=== PATIENT | female | born 1955 | race Caucasian/White ===

== ENCOUNTER → 2019-11-07 12:05 | Outpatient (CLI) | payer OTHER, SELFPAY ==
--- NOTE | ~2019-11-07 | DEXA_ITS ---
Bone Density Report Name: Reva Conroy Age: 64 Sex: Female Ethnicity: White Date of : 1955 Indication: postmenopausal; screening for osteoporosis; Referring Provider: KHOI ALEX Study: Bone densitometry was performed. Exam Date: November 07, 2019 Accession number: [id number] Bone Density: Region BMD T-score Z-score Classification AP Spine (L1, L2, L3) 0.908 -1.0 0.6 Normal Femoral Neck (Left) 0.721 -1.2 0.3 Osteopenia Total Hip (Left) 0.965 0.2 1.3 Normal Femoral Neck (Right) 0.705 -1.3 0.1 Osteopenia Total Hip (Right) 0.947 0.0 1.2 Normal Total Hip Mean 0.956 0.1 1.3 Normal World Health Organization criteria for BMD impression classify patients as: Normal (T-score at or above -1.0), Osteopenia (T-score between -1.0 and -2.5), or Osteoporosis (T-score at or below -2.5). 10-year Fracture Risk(1): Major Osteoporotic Fracture 7.9% Hip Fracture 0.6% Reported Risk Factors: [place] (), Neck BMD=0.705, BMI=30.2 (1) FRAX(R) Version 3.08. Fracture probability calculated for an untreated patient. Fracture probability may be lower if the patient has received treatment. Previous Exams: Region Exam Age BMD T-score BMD Change BMD Change Date g/cm2 vs Baseline vs Previous AP Spine(L1, L2, L3) 11/07/2019 64 0.908 -1.0 -0.054* -0.061* 06/08/2016 60 0.969 -0.4 0.007 0.007 04/05/2014 58 0.963 -0.5 Total Hip(Left) 11/07/2019 64 0.965 0.2 0.067* 0.013 06/08/2016 60 0.952 0.1 0.054* 0.054* 04/05/2014 58 0.898 -0.4 Total Hip(Right) 11/07/2019 64 0.947 0.0 0.062* -0.013 06/08/2016 60 0.960 0.1 0.075* 0.075* 04/05/2014 58 0.885 -0.5 *Denotes significance at 95% confidence level, LSC for AP Spine = 0.022 g/cm2, LSC for Total Hip = 0.027 g/cm2 Clinical Information Provided by Patient: Has used the following medications: Vitamin D Patient maximum height was 60.2 Menopause Age: 56 Drinks caffeinated beverages Onset of menses at age 14 Number of children 3 Impression: The patient has low bone mass, based on the Right Femoral Neck T-score. The patient has an estimated ten-year risk of hip fracture of 0.6% and an estimated ten-year risk of major fracture of 7.9%, based on the WHO FRAX algorithm. The BMD for the AP Spine(L1, L2, L3) decreased, changing by -0.061 since the last DXA ex
--- NOTE | ~2019-11-07 | MM_ITS ---
EXAMINATION: MM screening [facility] BI w [place] HISTORY: Screening mammogram TECHNIQUE: Craniocaudal and mediolateral oblique 3-D tomosynthesis images were obtained and synthetic 2-D images were generated. CAD analysis was submitted and interpreted. COMPARISON: 03/01/2019, 08/07/2018, 07/21/2018, 07/18/2017, 06/08/2016 BREAST PARENCHYMAL COMPOSITION: The breasts are heterogeneously dense, which may obscure small masses . FINDINGS: Scattered benign-appearing calcifications are present. Also seen are multiple waxing and wa jorge luis masses of the breasts, most consistent with cysts. There is no evidence of suspicious mass, calc ification, or architectural distortion to suggest malignancy in either breast. There has been no susp icious interval change. IMPRESSION: 1. No mammographic evidence of malignancy. 2. Recommend routine screening mammography in one year. BI-RADS Category 2: Benign finding(s). Reviewed, dictated and finalized at location A.
== END ==
PROVIDERS: PCP Family Medicine; Visit Provider Obstetrics & Gynecology Gynecology
DX: Z12.31 Encounter for screening mammogram for malignant neoplasm of breast (principal); Z78.0 Asymptomatic menopausal state; M85.852 Other specified disorders of bone density and structure, left thigh; M85.851 Other specified disorders of bone density and structure, right thigh
CPT/HCPCS: 77063; 77067; 77080

== ENCOUNTER → 2020-06-20 10:42 | Outpatient (CLI) | payer OTHER, SELFPAY ==
--- NOTE | ~2020-06-20 | XR_ITS ---
EXAMINATION: XR hand BI arthritis min 3V EXAM DATE: 06/20/2020 10:56 INDICATION: M79.641 - Pain in right hand. Bilateral hand joint stiffness. Bilateral hand pain of 1st metacarpals. RT hand 3rd digit distal ip joint pain. x months. no inj. no prior fx. RT carpal tunnel surg 2012 TECHNIQUE: Right hand frontal, lateral and oblique projections obtained and reviewed. Left hand fron nataly, lateral and oblique projections obtained and reviewed. Catchers projection of both hands. Correl ation is made to right wrist examination 03/14/2018. FINDINGS: On the right hand there is moderate 1st carpometacarpal and mild to moderate triscaphe prim lainey osteoarthritis. Minimal interphalangeal joint primary osteoarthritis. On the left hand there is mild to moderate triscaphe and mild 1st carpometacarpal primary osteoarthri tis, minimal scattered interphalangeal primary osteoarthritis. No osseous erosions on either hand. No fractures or soft tissue abnormalities. 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 No acut e findings. Reviewed, dictated and finalized at location B. 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 No acute findings.
== END ==
PROVIDERS: PCP Family Medicine; Visit Provider Physician Assistant
DX: M19.041 Primary osteoarthritis, right hand (principal); M19.042 Primary osteoarthritis, left hand
CPT/HCPCS: 73130

== ENCOUNTER → 2020-08-12 03:40 | Outpatient (CLI) | payer OTHER, SELFPAY ==
[2020-08-12 20:30] LABS: SARS-CoV-2 RNA PCR Negative
== END ==
PROVIDERS: PCP Family Medicine; Visit Provider Internal Medicine Gastroenterology
DX: Z01.812 Encounter for preprocedural laboratory examination (principal); Z20.822 Contact with and (suspected) exposure to COVID-19
CPT/HCPCS: C9803; U0003; U0005

== ENCOUNTER 2020-08-15 01:39 | Day surgery (SDC) | payer OTHER, SELFPAY ==
[2020-08-06 12:18] VITALS: BMI 31.4
[2020-08-15] MEDS: LACTATED RINGERS 1,000 ML 150 ML IV CONT (07:10)
--- NOTE | 2020-08-15 07:12 | PM.HPGS ---
History of Present Illness History of Present Illness Consent: Risks, benefits, and alternatives have been discussed and questions answered. Patient agrees to proceed with procedure. Chief complaint: rectal bleeding Narrative: Reva Conroy is a 64 year old female Here for colon cancer screening. Her last colonoscopy was 10 years ago. She has seen some blood per rectum recently Review of Systems Review of Systems: All systems reviewed & are unremarkable except as noted in HPI and below PMFSH Past Medical History Medical History (Updated 08/15/20 @ 07:13 by Leandro Koch MD) DDD (degenerative disc disease) Fibromyalgia History of TIA (transient ischemic attack) Surgical History Surgical History History of carpal tunnel surgery right History of cholecystectomy History of lumpectomy twice, right side, benign History of umbilical hernia repair Family History Family History Father Diabetes mellitus Sibling Diabetes mellitus Heart disease Father Cerebrovascular accident Family history of diabetes mellitus in first degree relative Hypertension Family history of coronary artery disease Sibling Family history of diabetes mellitus in first degree relative Acute myocardial infarction Mother Family history of malignant neoplasm of cervix Family history of heart disease in male family member before age 55 Other Family history of elevated blood lipids Family history of hypercholesterolemia Social History Social History Social History: Smoking packs per day: 0.5 Smoking cigarettes per day: 10.0 Years smoked: 20 Smoking pack-years: 10.00 Smoking status: Former smoker Tobacco type: cigarettes Second hand tobacco smoke exposure: No Smoking end date: 05/27/08 Alcohol intake: current Alcohol use details: very rarely Substance use: never Substance use type: does not use Living arrangements: with family Gender identity (if verbalized by the patient): Female Spiritual care concerns: No Meds Home Medications and Allergies Home Medications Medication Instructions Recorded Confirmed Type L.acidophilus,gasseri,rhamnosus-B.bifidum,long 1 cap PO 3XW 06/06/19 08/15/20 History 3 billion cell capsule ascorbic acid (vitamin C) 250 mg 250 mg PO .every other day tablet 06/06/19 08/15/20 History tablet betamethasone dipropionate 0.05 % 1 applic TOPICAL BID 06/06/19 08/15/20 History lotion gjwonkx-klpzuvljx-tojr tablet 1 tablet PO DAILY tablet 06/06/19 08/15/20 History crisaborole 2 % topical ointment 1 applic TOPICAL BID PRN 06/06/19 08/15/20 History ergocalciferol (vitamin D2) 1,250 50,000 unit PO WEEKLY 06/06/19 08/15/20 History mcg (50,000 unit) capsule cedrick (Zingiber officinalis) 550 550 mg PO DAILY 06/06/19 08/15/20 History mg capsule ivermectin 1 % topical cream 1 applic TOPICAL DAILY PRN 06/06/19 08/15/20 History mecobalamin (vitamin B12) 1,000 1,000 mcg PO DAILY 06/06/19 08/15/20 History mcg chewable tablet metronidazole 1 % topical gel 1 applic TOPICAL DAILY 06/06/19 08/15/20 History niacin 250 mg tablet 250 mg PO DAILY 06/06/19 08/15/20 History omega-3 fatty acids 1,000 mg 2,000 mg PO DAILY cap 06/06/19 08/15/20 History capsule turmeric root extract 500 mg 500 mg PO 3XW 06/06/19 08/15/20 History capsule omeprazole 20 mg capsule,delayed 20 mg PO DAILY #90 cap 08/07/19 08/15/20 Rx release triamterene 37.5 1 cap PO DAILY #90 cap 04/21/20 08/15/20 Rx mg-hydrochlorothiazide 25 mg capsule atorvastatin 40 mg tablet 40 mg PO DAILY #90 tablet 06/23/20 08/15/20 Rx metoprolol succinate 25 mg 25 mg PO DAILY #90 tablet 06/23/20 08/15/20 Rx tablet,extended release 24 hr ascorbic acid-collagen [Collagen 2 cap PO DAILY 08/06/20 08/15/20 History Plus Vitamin C]
[2020-08-15 07:14] VITALS: BMI 30.9
[2020-08-15 07:20] VITALS: BP 112/66; PULSE 79; RESP 18; TEMP 36.2; O2SAT 97
--- NOTE | 2020-08-15 07:31 | WPDANESEPPF ---
Anes - Initial Pre Proc Eval Procedure: Operation Date: 08/15/20 08:00 Proposed Procedures p Colonoscopy - Leandro Koch MD Date/Time: 08/15/20 07:31 Surgeon: Leandro Koch MD Pre Op Diagnosis: rectal bleeding Patient Data Age: 64 Gender: F Height: 5 ft Weight: 71.8 kg Last Vital Signs Temp 97.1 F L 08/15/20 07:20 Pulse 79 08/15/20 07:20 Resp 18 08/15/20 07:20 BP 112/66 08/15/20 07:20 Pulse Ox 97 08/15/20 07:20 Allergies Allergy/AdvReac Type Severity Reaction Status Date / Time celecoxib Allergy Severe SWELLING Verified 08/15/20 06:51 OF THROAT AND EYES, HIVES morphine Allergy ITCHING, Verified 08/15/20 06:51 NAUSEA Home Medications Medication Instructions Recorded Confirmed Type L.acidophilus,gasseri,rhamnosus-B.bifidum,long 1 cap PO 3XW 06/06/19 08/15/20 History 3 billion cell capsule ascorbic acid (vitamin C) 250 mg 250 mg PO .every other day tablet 06/06/19 08/15/20 History tablet betamethasone dipropionate 0.05 % 1 applic TOPICAL BID 06/06/19 08/15/20 History lotion uffmruj-navoomgcd-mufc tablet 1 tablet PO DAILY tablet 06/06/19 08/15/20 History crisaborole 2 % topical ointment 1 applic TOPICAL BID PRN 06/06/19 08/15/20 History ergocalciferol (vitamin D2) 1,250 50,000 unit PO WEEKLY 06/06/19 08/15/20 History mcg (50,000 unit) capsule cedrick (Zingiber officinalis) 550 550 mg PO DAILY 06/06/19 08/15/20 History mg capsule ivermectin 1 % topical cream 1 applic TOPICAL DAILY PRN 06/06/19 08/15/20 History mecobalamin (vitamin B12) 1,000 1,000 mcg PO DAILY 06/06/19 08/15/20 History mcg chewable tablet metronidazole 1 % topical gel 1 applic TOPICAL DAILY 06/06/19 08/15/20 History niacin 250 mg tablet 250 mg PO DAILY 06/06/19 08/15/20 History omega-3 fatty acids 1,000 mg 2,000 mg PO DAILY cap 06/06/19 08/15/20 History capsule turmeric root extract 500 mg 500 mg PO 3XW 06/06/19 08/15/20 History capsule omeprazole 20 mg capsule,delayed 20 mg PO DAILY #90 cap 08/07/19 08/15/20 Rx release triamterene 37.5 1 cap PO DAILY #90 cap 04/21/20 08/15/20 Rx mg-hydrochlorothiazide 25 mg capsule atorvastatin 40 mg tablet 40 mg PO DAILY #90 tablet 06/23/20 08/15/20 Rx metoprolol succinate 25 mg 25 mg PO DAILY #90 tablet 06/23/20 08/15/20 Rx tablet,extended release 24 hr ascorbic acid-collagen [Collagen 2 cap PO DAILY 08/06/20 08/15/20 History Plus Vitamin C] aspirin 162 mg PO DAILY 08/06/20 08/15/20 History fiber 3.4 g PO DAILY 08/06/20 08/15/20 History glucos sul 4NMl-dnd-jgtuw-C-Mn 2 cap PO DAILY 08/06/20 08/15/20 History [Glucosamine Chondroitin] naproxen 500 mg PO BID PRN 08/06/20 08/15/20 History Patient hx anesthesia problems: none Family hx anesthesia problems: none PMFSH Past Medical History Medical History (Updated 08/15/20 @ 07:13 by Leandro Koch MD) DDD (degenerative disc disease) Fibromyalgia History of TIA (transient ischemic attack) Surgical History Surgical History History of carpal tunnel surgery right History of cholecystectomy History of lumpectomy twice, right side, benign History of umbilical hernia repair Family History Family History Father Diabetes mellitus Sibling Diabetes mellitus Heart disease Father Cerebrovascular accident Family history of diabetes mellitus in first degree relative Hypertension Family history of coronary artery disease Sibling Family history of diabetes mellitus in first degree relative Acute myocardial infarction Mother Family history of malignant neoplasm of cervix Family history of heart disease in male family member before age 55 Other Family history of elevated blood lipids Family history of hypercholesterolemia Social History Social History Social History:
[2020-08-15 07:43] VITALS: BP 96/53; PULSE 78; RESP 18; O2SAT 97
[2020-08-15 07:53] VITALS: BP 98/51; PULSE 73; RESP 18; O2SAT 98
[2020-08-15 07:59] VITALS: BP 115/60; PULSE 76; RESP 18; O2SAT 98
== END 2020-08-15 08:26 | disposition home or self-care (01) ==
PROVIDERS: PCP Family Medicine; Visit Provider Internal Medicine Gastroenterology
PROC: 0DJD8ZZ Inspection of Lower Intestinal Tract, Via Natural or Artificial Opening Endoscopic (ICD-10-PCS; CPT 45378; principal; 2020-08-15 08:00)
DX: Z12.11 Encounter for screening for malignant neoplasm of colon (principal); K60.2 Anal fissure, unspecified; K92.1 Melena; M79.7 Fibromyalgia; Z86.73 Personal history of transient ischemic attack (TIA), and cerebral infarction without residual deficits; Z87.891 Personal history of nicotine dependence; Z79.82 Long term (current) use of aspirin
CPT/HCPCS: 45378; C9803; J2704; J7120; U0003; U0005

== ENCOUNTER → 2020-12-23 14:52 | Outpatient (CLI) | payer OTHER, SELFPAY ==
--- NOTE | ~2020-12-23 | MM_ITS ---
EXAMINATION: MM screening [facility] [place] HISTORY: Screening TECHNIQUE: Craniocaudal and mediolateral oblique 3-D tomosynthesis images were obtained and synthetic 2-D images were generated. CAD analysis was submitted and interpreted. COMPARISON: Comparison to multiple prior studies sequentially, with oldest reviewed study dated 06/08. BREAST PARENCHYMAL COMPOSITION: The breasts are heterogeneously dense, which may obscure small masses . FINDINGS: There scattered benign-appearing bilateral breast calcifications. There is no evidence of s uspicious mass, calcification, or architectural distortion to suggest malignancy in either breast. Th ere has been no suspicious interval change. IMPRESSION: 1. No mammographic evidence of malignancy. 2. Recommend routine screening mammography in one year. BI-RADS Category 2: Benign finding(s). Reviewed, dictated and finalized at location A.
== END ==
PROVIDERS: Visit Provider Obstetrics & Gynecology Gynecology
DX: Z12.31 Encounter for screening mammogram for malignant neoplasm of breast (principal)
CPT/HCPCS: 77063; 77067

== ENCOUNTER 2021-12-15 09:17 | Outpatient (CLI) | payer MEDICARE, SELFPAY ==
--- NOTE | ~2021-12-15 | US_ITS ---
EXAMINATION: US right upper quadrant DATE: 12/15/2021 11:49 INDICATION: Right upper quadrant pain TECHNIQUE: Multiple grayscale and Doppler ultrasound images of the abdomen were obtained. COMPARISON: None available FINDINGS: The head and body of the pancreas are normal. The pancreatic tail is obscured by bowel gas. The liver is normal with normal echogenicity and echotexture. No surface nodularity. Normal hepatope nataly flow in the main portal vein. The gallbladder is surgically absent. The common bile duct measures 11 mm, consistent with post cholecystectomy state. IMPRESSION: 1. No sonographic correlate for the patient's symptoms. Reviewed, dictated and finalized at location B.
== END 2021-12-15 09:18 | disposition home or self-care (01) ==
PROVIDERS: PCP Family Medicine; Visit Provider Family Medicine
DX: R10.11 Right upper quadrant pain (principal)
CPT/HCPCS: 76705

== ENCOUNTER → 2022-02-03 10:22 | Outpatient (CLI) | payer MEDICARE, SELFPAY ==
--- NOTE | ~2022-02-03 | MM_ITS ---
EXAMINATION: MM screening [facility] w [place] HISTORY: Screening TECHNIQUE: Craniocaudal and mediolateral oblique 3-D tomosynthesis images were obtained and synthetic 2-D images were generated. CAD analysis was submitted and interpreted. COMPARISON: Comparison to multiple prior studies sequentially, with oldest reviewed study dated 07/18. BREAST PARENCHYMAL COMPOSITION: The breasts are heterogeneously dense, which may obscure small masses . FINDINGS: There are stable benign-appearing bilateral breast calcifications. There is no evidence of suspicious mass, calcification, or architectural distortion to suggest malignancy in either breast. T here has been no suspicious interval change. IMPRESSION: 1. No mammographic evidence of malignancy. 2. Recommend routine screening mammography in one year. BI-RADS Category 2: Benign finding(s). Reviewed, dictated and finalized at location A.
== END ==
PROVIDERS: PCP Family Medicine; Visit Provider Obstetrics & Gynecology Gynecology
DX: Z12.31 Encounter for screening mammogram for malignant neoplasm of breast (principal)
CPT/HCPCS: 77063; 77067

== ENCOUNTER → 2022-02-22 11:08 | Outpatient (CLI) | payer MEDICARE, SELFPAY ==
--- NOTE | ~2022-02-22 | DEXA_ITS ---
Bone Density Report Name: ZACK PABON Age: 66 Sex: Female Ethnicity: White Date of : 1955 Indication: postmenopausal; screening for osteoporosis; Referring Provider: KHOI ALEX Study: Bone densitometry was performed. Exam Date: February 22, 2022 Accession number: [id number] Bone Density: Region BMD T-score Z-score Classification AP Spine (L1, L2, L3) 0.964 -0.5 1.3 Normal Femoral Neck (Left) 0.731 -1.1 0.5 Osteopenia Total Hip (Left) 0.965 0.2 1.4 Normal Femoral Neck (Right) 0.689 -1.4 0.1 Osteopenia Total Hip (Right) 0.943 0.0 1.3 Normal Total Hip Mean 0.954 0.1 1.4 Normal World Health Organization criteria for BMD impression classify patients as: Normal (T-score at or above -1.0), Osteopenia (T-score between -1.0 and -2.5), or Osteoporosis (T-score at or below -2.5). 10-year Fracture Risk(1): Major Osteoporotic Fracture 8.4% Hip Fracture 0.8% Reported Risk Factors: [place] (), Neck BMD=0.689, BMI=30.3 (1) FRAX(R) Version 3.08. Fracture probability calculated for an untreated patient. Fracture probability may be lower if the patient has received treatment. Previous Exams: Region Exam Age BMD T-score BMD Change BMD Change Date g/cm2 vs Baseline vs Previous AP Spine(L1, L2, L3) 02/22/2022 66 0.964 -0.5 0.002 0.056* 11/07/2019 64 0.908 -1.0 -0.054* -0.061* 06/08/2016 60 0.969 -0.4 0.007 0.007 04/05/2014 58 0.963 -0.5 Total Hip(Left) 02/22/2022 66 0.965 0.2 0.067* 0.000 11/07/2019 64 0.965 0.2 0.067* 0.013 06/08/2016 60 0.952 0.1 0.054* 0.054* 04/05/2014 58 0.898 -0.4 Total Hip(Right) 02/22/2022 66 0.943 0.0 0.058* -0.004 11/07/2019 64 0.947 0.0 0.062* -0.013 06/08/2016 60 0.960 0.1 0.075* 0.075* 04/05/2014 58 0.885 -0.5 *Denotes significance at 95% confidence level, LSC for AP Spine = 0.022 g/cm2, LSC for Total Hip = 0.027 g/cm2 Clinical Information Provided by Patient: Has used the following medications: Vitamin D, Calcium Patient maximum height was 60.2 Menopause Age: 56 Drinks caffeinated beverages Onset of menses at age 14 Number of children 3 Impression: The patient has low bone mass, based on the Right Femoral Neck T-score. The patient has an estimated ten-year r
== END ==
PROVIDERS: PCP Family Medicine; Visit Provider Obstetrics & Gynecology Gynecology
DX: Z78.0 Asymptomatic menopausal state (principal); M85.88 Other specified disorders of bone density and structure, other site; M85.852 Other specified disorders of bone density and structure, left thigh; M85.851 Other specified disorders of bone density and structure, right thigh
CPT/HCPCS: 77080

== ENCOUNTER 2022-09-15 01:45 | Day surgery (SDC) | payer MEDICARE, SELFPAY ==
[2022-08-30 13:44] VITALS: BMI 29.7
--- NOTE | 2022-09-14 16:31 | PM.HPGS ---
History of Present Illness History of Present Illness Consent: Risks, benefits, and alternatives have been discussed and questions answered. Patient agrees to proceed with procedure. Chief complaint: epigastric pain, GERD, nausea Narrative: Reva Conroy is a 66 year old female Who is being investigated for ?epigastric burning that radiates up into the chest for the past several weeks. States symptoms are worse after eating. Reports associated nausea but no vomiting. She denies any dysphagia or odynophagia. She denies any black or bloody stools, no change in bowel habits or diarrhea. She does have a history of GERD which she treats with omeprazole.? also, I had found some gastric ulcers about 5 years ago. She is doing better knowledge she has doubled omeprazole to 40 mg twice a day and added sucralfate 1 g 3 times a day Review of Systems Review of Systems: All systems reviewed & are unremarkable except as noted in HPI and below PMFSH Past Medical History Medical History Atypical chest pain DDD (degenerative disc disease) Epigastric pain Fibromyalgia History of TIA (transient ischemic attack) Nausea Obesity Surgical History Surgical History History of carpal tunnel surgery right History of cholecystectomy History of lumpectomy twice, right side, benign History of umbilical hernia repair Family History Family History Father Diabetes mellitus Sibling Diabetes mellitus Heart disease Father Cerebrovascular accident Family history of diabetes mellitus in first degree relative Hypertension Family history of coronary artery disease Sibling Family history of diabetes mellitus in first degree relative Acute myocardial infarction Mother Family history of malignant neoplasm of cervix Family history of heart disease in male family member before age 55 Other Family history of elevated blood lipids Family history of hypercholesterolemia Social History Social History Social History: Smoking packs per day: 0.5 Smoking cigarettes per day: 10.0 Years smoked: 20 Smoking pack-years: 10.00 Smoking status: Former smoker Tobacco type: cigarettes Second hand tobacco smoke exposure: No Smoking end date: 05/27/08 Alcohol intake: never Alcohol use details: very rarely Substance use: never Substance use type: does not use Living arrangements: with family Occupation/Education: retired Gender identity (if verbalized by the patient): Female Sexual Orientation (if Verbalized by the Patient): Straight or Heterosexual Spiritual care concerns: No Meds Home Medications and Allergies Home Medications Medication Instructions Recorded Confirmed Type L.acidophilus,gasseri,rhamnosus-B.bifidum,long 1 cap PO 3XW 06/06/19 08/30/22 History 3 billion cell capsule (Digestive Probiotic) ascorbic acid (vitamin C) 250 mg 250 mg PO .every other day 06/06/19 08/30/22 History tablet betamethasone dipropionate 0.05 % 1 applic topical BID 06/06/19 08/30/22 History lotion ucwlrqa-xrrymcvpg-ykws tablet 1 tablet PO DAILY 06/06/19 08/30/22 History crisaborole 2 % topical ointment 1 applic topical BID PRN rosacea 06/06/19 08/30/22 History (Eucrisa) ergocalciferol (vitamin D2) 1,250 50,000 unit PO USEASDIRECTD 06/06/19 08/30/22 History mcg (50,000 unit) capsule ivermectin 1 % topical cream 1 applic topical DAILY PRN Itching 06/06/19 08/30/22 History (Soolantra) metronidazole 1 % topical gel 1 applic topical DAILY 06/06/19 08/30/22 History niacin 250 mg tablet 250 mg PO DAILY 06/06/19 08/30/22 History omega-3 fatty acids 1,000 mg 2,000 mg PO DAILY 06/06/19 08/30/22 History capsule (Fish Oil Concentrate) aspirin 81 mg tablet 162 mg PO DAILY 08/06/20
[2022-09-15 08:35] VITALS: BP 119/70; PULSE 70; RESP 18; TEMP 36.3; O2SAT 98
--- NOTE | 2022-09-15 08:38 | WPDANESEPPF ---
Anes - Initial Pre Proc Eval Procedure: Operation Date: 09/15/22 09:45 Proposed Procedures p Esophagogastroduodenoscopy - Leandro Koch MD Date/Time: 09/15/22 08:38 Surgeon: Leandro Koch MD Pre Op Diagnosis: epigastric pain, GERD, nausea Patient Data Age: 66 Gender: F Height: 1.52 m Weight: 68.9 kg Last Vital Signs Temp 97.3 F L 09/15/22 08:35 Pulse 70 09/15/22 08:35 Resp 18 09/15/22 08:35 BP 119/70 09/15/22 08:35 Pulse Ox 98 09/15/22 08:35 O2 Del Method Room Air 09/15/22 08:35 Allergies Allergy/AdvReac Type Severity Reaction Status Date / Time celecoxib Allergy Severe SWELLING Verified 09/15/22 08:35 OF THROAT AND EYES, HIVES morphine Allergy ITCHING, Verified 09/15/22 08:35 NAUSEA Home Medications Medication Instructions Recorded Confirmed Type L.acidophilus,gasseri,rhamnosus-B.bifidum,long 1 cap PO 3XW 06/06/19 08/30/22 History 3 billion cell capsule (Digestive Probiotic) ascorbic acid (vitamin C) 250 mg 250 mg PO .every other day 06/06/19 08/30/22 History tablet betamethasone dipropionate 0.05 % 1 applic topical BID 06/06/19 08/30/22 History lotion fdkbhko-eqyoknvfn-eiug tablet 1 tablet PO DAILY 06/06/19 08/30/22 History crisaborole 2 % topical ointment 1 applic topical BID PRN rosacea 06/06/19 08/30/22 History (Eucrisa) ergocalciferol (vitamin D2) 1,250 50,000 unit PO USEASDIRECTD 06/06/19 08/30/22 History mcg (50,000 unit) capsule ivermectin 1 % topical cream 1 applic topical DAILY PRN Itching 06/06/19 08/30/22 History (Soolantra) metronidazole 1 % topical gel 1 applic topical DAILY 06/06/19 08/30/22 History niacin 250 mg tablet 250 mg PO DAILY 06/06/19 08/30/22 History omega-3 fatty acids 1,000 mg 2,000 mg PO DAILY 06/06/19 08/30/22 History capsule (Fish Oil Concentrate) aspirin 81 mg tablet 162 mg PO DAILY 08/06/20 08/30/22 History glucosamine sulf dipot 2 cap PO DAILY 08/06/20 08/30/22 History chlr,msm,chond 550 mg-C 30 mg-ish 1 mg capsule (Glucosamine Chondroitin) psyllium seed (with dextrose) oral 3.4 g PO DAILY 08/06/20 08/30/22 History powder (fiber) metoprolol succinate 25 mg 25 mg PO DAILY #90 tabs 12/07/21 08/30/22 Rx tablet,extended release 24 hr atorvastatin 40 mg tablet See Rx Instructions .Route 01/25/22 08/30/22 Rx .COMPLEX #90 tabs tizanidine 4 mg tablet 4 mg PO BID PRN muscle spasticity 03/30/22 08/30/22 Rx #180 tabs triamterene 37.5 1 cap PO DAILY #90 caps 03/30/22 08/30/22 Rx mg-hydrochlorothiazide 25 mg capsule naproxen 500 mg tablet 500 mg PO BID PRN Pain #180 tabs 05/19/22 08/30/22 Rx gabapentin 300 mg capsule See Rx Instructions .Route 06/08/22 08/30/22 Rx .COMPLEX #270 caps omeprazole 40 mg capsule,delayed See Rx Instructions .Route 09/06/22 Rx release .COMPLEX #60 caps Patient hx anesthesia problems: none Family hx anesthesia problems: none Results Review: All pre-operative results and documents have been reviewed as part of the pre-operative evaluation. [facility], [facility] Past Medical History Medical History (Updated 08/13/22 @ 10:07 by ELAINA Salinas) Atypical chest pain DDD (degenerative disc disease) Epigastric pain Fibromyalgia History of TIA (transient ischemic attack) Nausea Obesity Surgical History Surgical History History of carpal tunnel surgery right History of cholecystectomy History of lumpectomy twice, right side, benign History of umbilical hernia repair Family History Family History Father Diabetes mellitus Sibling Diabetes mellitus Heart disease Father Cerebrovascular accident Family history of diabetes mellitus in first degree relative Hypertension Family history of coronary artery disease Sibling Family history of diabetes mellitus in first degree relative Acute myocardial infarction
[2022-09-15] MEDS: LACTATED RINGERS 1,000 ML 150 ML IV CONT (08:48)
[2022-09-15 09:36] VITALS: BP 106/62; PULSE 79; RESP 26; O2SAT 98
[2022-09-15 09:46] VITALS: BP 107/66; PULSE 75; RESP 21; O2SAT 97
[2022-09-15 09:56] VITALS: BP 121/63; PULSE 73; RESP 21; O2SAT 99
== END 2022-09-15 10:07 | disposition home or self-care (01) ==
PROVIDERS: PCP Family Medicine; Visit Provider Internal Medicine Gastroenterology
PROC: 0DJ08ZZ Inspection of Upper Intestinal Tract, Via Natural or Artificial Opening Endoscopic (ICD-10-PCS; CPT 43235; principal; 2022-09-15 09:45)
DX: R10.13 Epigastric pain (principal); R11.0 Nausea; K21.9 Gastro-esophageal reflux disease without esophagitis; Z87.891 Personal history of nicotine dependence
CPT/HCPCS: 43239; 88305; J2001; J2704; J7120

== ENCOUNTER → 2023-03-18 08:57 | Outpatient (CLI) | payer MEDICARE, SELFPAY ==
--- NOTE | ~2023-03-18 | MM_ITS ---
EXAMINATION: MM screening tresa BI w antoinette HISTORY: Screening mammogram TECHNIQUE: Craniocaudal and mediolateral oblique 3-D tomosynthesis images were obtained and synthetic 2-D images were generated. CAD analysis was submitted and interpreted. COMPARISON: 02/03/2022, 12/23/2020, 11/07/2019 bilateral screening mammogram examinations BREAST PARENCHYMAL COMPOSITION: The breasts are heterogeneously dense, which may obscure small masses . FINDINGS: There are numerous bilateral benign calcifications. There is no evidence of suspicious mass , calcification, or architectural distortion to suggest malignancy in either breast. There has been n o suspicious interval change. IMPRESSION: 1. No mammographic evidence of malignancy. 2. Recommend routine screening mammography in one year. BI-RADS Category 2: Benign finding(s). Reviewed, dictated and finalized at location A. ACCOUNTS REPRESENTATIVE
== END ==
PROVIDERS: PCP Obstetrics & Gynecology Gynecology; Visit Provider Obstetrics & Gynecology Gynecology
DX: Z12.31 Encounter for screening mammogram for malignant neoplasm of breast (principal)
CPT/HCPCS: 77063; 77067

== ENCOUNTER 2023-04-16 08:24 | Emergency (ER) | payer MEDICARE, SELFPAY ==
--- NOTE | 2023-04-16 08:32 | ED.URI ---
HPI - URI/Sore Throat General Chief Complaint: Upper Respiratory Infection Stated Complaint: sorethroat Time Seen by Provider: 04/16/23 08:33 Source: patient Mode of arrival: ambulatory Limitations: no limitations History of Present Illness HPI Narrative: Reva is a 67-year-old female patient presenting to the clinic today with complaints of a sore throat, cough, headache, and nasal congestion x3 days. She reports symptoms started on Tuesday. No known fever or chills. Reports she took an at-home COVID test and was positive. She denies any chest pain or shortness of breath. MD elicited complaint: cough, sore throat, nasal congestion and other (Headache) Related Data Home Medications Medication Instructions Recorded Confirmed L.acidophilus,gasseri,rhamnosus-B.bifidum,long 1 cap PO 3XW 06/06/19 03/22/23 3 billion cell capsule (Digestive Probiotic) ascorbic acid (vitamin C) 250 mg 250 mg PO .every other day 06/06/19 03/22/23 tablet betamethasone dipropionate 0.05 % 1 applic topical BID 06/06/19 03/22/23 lotion swbfxnn-yhbrrxqid-uacd tablet 1 tablet PO DAILY 06/06/19 03/22/23 crisaborole 2 % topical ointment 1 applic topical BID PRN rosacea 06/06/19 03/22/23 (Eucrisa) ergocalciferol (vitamin D2) 1,250 50,000 unit PO USEASDIRECTD 06/06/19 03/22/23 mcg (50,000 unit) capsule ivermectin 1 % topical cream 1 applic topical DAILY PRN Itching 06/06/19 03/22/23 (Soolantra) metronidazole 1 % topical gel 1 applic topical DAILY 06/06/19 03/22/23 niacin 250 mg tablet 250 mg PO DAILY 06/06/19 03/22/23 omega-3 fatty acids 1,000 mg 2,000 mg PO DAILY 06/06/19 03/22/23 capsule (Fish Oil Concentrate) aspirin 81 mg tablet 162 mg PO DAILY 08/06/20 03/22/23 glucosamine sulf dipot 2 cap PO DAILY 08/06/20 03/22/23 chlr,msm,chond 550 mg-C 30 mg-ish 1 mg capsule (Glucosamine Chondroitin) psyllium seed (with dextrose) oral 3.4 g PO DAILY 08/06/20 03/22/23 powder (fiber) Allergies Allergy/AdvReac Type Severity Reaction Status Date / Time celecoxib Allergy Severe SWELLING Verified 03/22/23 10:22 OF THROAT AND EYES, HIVES morphine Allergy ITCHING, Verified 03/22/23 10:22 NAUSEA Review of Systems Review of Systems: Pertinent positives per HPI. Patient denies any fever, chills, rash, visual changes, dizziness,shortness of breath, chest pain, palpitations, nausea, vomiting, diarrhea, constipation, abdominal pain, or any urinary issues. [facility] Past Medical History Medical History Atypical chest pain DDD (degenerative disc disease) Epigastric pain Fibromyalgia History of TIA (transient ischemic attack) Nausea Obesity Osteoarthritis Surgical History Surgical History History of carpal tunnel surgery right History of cholecystectomy History of lumpectomy twice, right side, benign History of umbilical hernia repair Family History Family History Father Diabetes mellitus Sibling Diabetes mellitus Heart disease Father Cerebrovascular accident Family history of diabetes mellitus in first degree relative Hypertension Family history of coronary artery disease Sibling Family history of diabetes mellitus in first degree relative Acute myocardial infarction Mother Family history of malignant neoplasm of cervix Family history of heart disease in male family member before age 55 Other Family history of elevated blood lipids Family history of hypercholesterolemia Social History Social History Social History: Smoking packs per day: 0.5 Smoking cigarettes per day: 10.0 Years smoked: 20 Smoking pack-years: 10.00 Smoking status: Former smoker Tobacco type: cigarettes Second hand tobacco smoke exposure: No Smoking end
[2023-04-16 08:42] VITALS: BP 133/75; PULSE 96; RESP 18; TEMP 36.3; O2SAT 97
== END 2023-04-16 09:11 | disposition home or self-care (01) ==
PROVIDERS: Emergency Provider Nurse Practitioner Family; PCP Family Medicine
DX: U07.1 COVID-19 (principal); Z87.891 Personal history of nicotine dependence; M79.7 Fibromyalgia; E66.9 Obesity, unspecified; Z68.30 Body mass index [BMI] 30.0-30.9, adult; M19.90 Unspecified osteoarthritis, unspecified site; Z86.73 Personal history of transient ischemic attack (TIA), and cerebral infarction without residual deficits; Z79.82 Long term (current) use of aspirin
CPT/HCPCS: 87081; 87426; 87880; 99213; C9803; G0463

== ENCOUNTER → 2023-06-23 15:03 | Outpatient (CLI) | payer MEDICARE, SELFPAY ==
--- NOTE | ~2023-06-23 | XR_ITS ---
Left Knee Technique: AP and lateral views were obtained. Clinical History: Pain Findings: No fracture or dislocation is seen. Osseous alignment is anatomic. Joint spaces are preserv ed without degenerative or erosive change. Soft tissues are unremarkable. No joint effusion is seen. Impression: Unremarkable left knee radiographs. Reviewed, dictated and finalized at [facility]. GENCY MEDICAL TECHNICIAN BASIC Impression: Unremarkable left knee radiographs.
--- NOTE | ~2023-06-23 | XR_ITS ---
Right Knee Technique: AP and lateral views were obtained. Clinical History: Pain Findings: No fracture or dislocation is seen. Osseous alignment is anatomic. Joint spaces are preserv ed without degenerative or erosive change. Soft tissues are unremarkable. No joint effusion is seen. Impression: Unremarkable right knee radiographs. Reviewed, dictated and finalized at [facility]. NTIFIC ARTIST Impression: Unremarkable right knee radiographs.
== END ==
PROVIDERS: PCP Family Medicine; Visit Provider Family Medicine
DX: M25.561 Pain in right knee (principal); M25.562 Pain in left knee
CPT/HCPCS: 73560

== ENCOUNTER 2023-08-02 09:31 | Outpatient (CLI) | payer MEDICARE, SELFPAY ==
[2023-08-02 09:43] LABS: Basophils Percent Auto 0.7 % (0.2-1.2); Eosinophils Absolute Auto 0.1 K/mm3 (0-0.3); Eosinophils Percent Auto 2.2 % (0-4.4); Hematocrit 44.1 % (37.0-47.0); Hemoglobin 14.5 g/dL (12.0-15.0); Immature Granulocyte Absolute 0.02 K/mm3 (0.00-0.031); Immature Granulocyte Percent A 0.3 % (0-0.5); Lymphocytes Absolute Auto 1.99 K/mm3 (0.9-3.2); Mean Corpuscular HGB Conc 32.9 g/dl (32-36); Mean Corpuscular Hemoglobin 27.3 pg (26-34); Mean Corpuscular Volume 83.1 fl (80-100); Mean Platelet Volume 9.5 fl (7.4-10.4); Monocytes Absolute Auto 0.5 K/mm3 (0.1-0.6); Monocytes Percent Auto 8.1 % (2.6-8.5); Neutrophils Absolute Auto 3.4 K/mm3 (1.3-6.7); Neutrophils Percent Auto 55.7 % (45.5-73.1); Platelet Count Result 273 k/mm3 (150-375); Red Blood Count 5.31 M/mm3 (4.2-5.4); Red Cell Distribution Width 12.5 % (11.5-14.5)
[2023-08-02 09:47] LABS: Blood Urea Nitrogen 16 mg/dL (8-26); Carbon Dioxide 33 mmol/L (22-30); Chloride 98 mmol/L (98-109); Estimated Glomerular Filt Rate 50; Glucose 104 mg/dL (70-105); Ionized Calcium (POC) 1.28 mmol/L (1.11-1.31); Potassium 3.6 mmol/L (3.5-4.9); Sodium 140 mmol/L (138-146)
[2023-08-02 12:19] LABS: Alanine Aminotransferase 25 U/L (6-35); Albumin Level 4.4 g/dL (3.5-5.1); Alkaline Phosphatase 92 U/L (38-126); Anion Gap 5 mmol/L (4-12); Aspartate Amino Transferase 25 U/L (14-36); Bilirubin,Total 1.2 mg/dL (0.2-1.3); Blood Urea Nitrogen 18 mg/dL (7-17); Calcium 10.2 mg/dL (8.4-10.2); Carbon Dioxide 31 mmol/L (22-30); Chloride 103 mmol/L (98-107); Estimated Glomerular Filt Rate 55; Glucose 106 mg/dL (65-110); Potassium 3.7 mmol/L (3.4-5.0); Sodium 139 mmol/L (137-145)
== END 2023-08-02 09:32 | disposition home or self-care (01) ==
LOC: ANHLAB 09:33
PROVIDERS: PCP Family Medicine; Visit Provider Internal Medicine Hematology & Oncology
DX: D75.1 Secondary polycythemia (principal)
CPT/HCPCS: 36415; 80047; 80053; 85025

== ENCOUNTER 2024-06-28 10:24 | Outpatient (CLI) | payer MEDICARE, SELFPAY ==
--- OUTSIDE RECORDS SUMMARY | 2024-06-28 11:55 | XMS_ITS | Clinical Summary ---
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 Active 0mega-3 fatty acids-vitamin E (FISH OIL) 1,000 mg Capsule Take 1,000 mg by mouth. Active CA CARB/VIT D3/MAG OX/ZN OXIDE (MALGORZATA MAG ZINC + D3 ORAL) Take by mouth. Active niacin (NIACOR) 250 mg tablet Take 250 mg by mouth daily. Active ksnjwkutioq-S4-d oswellia serr (OSTEO BI-FLEX, 5-LOXIN,) 1,500-400-100 mg-unit-mg Tablet Take by mouth. Active atorvastatin (LIPITOR) 40 mg tablet 01/02/2021 Active Ca-D3-mag by-wjlp-bpd-ish -bor 600 mg calcium- 20 mcg-50 mg Tablet Act roosevelt metoprolol succinate (TOPROL XL) 25 mg Extended Release 24 hour tablet Take 25 mg by mouth daily. Active Ascorbic Acid (Vitamin C) 500 mg Capsule, Sustained Release Active calcium as carbonate (CALTRATE) 1,500 mg (600 mg elemental) Tablet Take 1 Tablet by mouth daily. Active tiZANidine (ZANAFLEX) 4 mg Tablet Take 4 mg by mouth every 8 hours as needed. 07/07/2021 Active Docosahexanoic Acid-Eicosapent 120-180 mg Capsule Active gabapentin (NEURONTIN) 300 mg capsule Take 1 in am & 1-2 PO HS 08/11/2021 Active Active Problems Problem Noted Date Diagnosed Date Elevated bilirubin 02/04/2021 Erythrocytosis 01/21/2021 Breast lump 07/31/2013 Encounters Date Type Department Care Team Description 06/27/2024 External Device Data [facility] ABSTRACTION Provider, Abstract 06/27/2024 External Device Data [facility] ABSTRACTION Provider, Abstract 06/12/2024 External Device Data [facility] ABSTRACTION Provider, Abstract 05/16/2024 External Device Data [facility] ABSTRACTION Provider, Abstract 05/16/2024 External Device Data [facility] ABSTRACTION Provider, Abstract from Last 3 Months Family History Medical History Relation Name Comments Diabetes Brother Heart Disease Brother Stroke Brother Heart Disease Father Hypertension Father Stroke Father Cancer Mother Heart Disease Mother High Cholesterol Mother Hypertension Mother Healthy Sister 1 1 Healthy Sister 2 Healthy Sister 3 Thyroid Disease Sister 3 Healthy Sister 4 Healthy Sister 5 Healthy Sister 6 Breast Cancer Neg Hx Relation Name Status Comments Brother Alive Father Maternal Grandfather Maternal Grandmother Mother Paternal Grandfather Paternal Grandmother Sister 1 1 Alive Sister 2 Alive Sister 3 Alive Sister 4 Alive Sister 5 Alive Sister 6 Alive Social History Tobacco Use Types Packs/Day Years Used Date Smoking Tobacco: Former Cigarettes Q uit: 07/31/2008 Smokeless Tobacco: Never Tobacco Cessation:Counseling Given: Not Answered Alcohol Use Standard Drinks/Week Comments Yes 0 (1 standard drink = 0.6 oz pur e alcohol) Comments Unknown Sex and Gender Information Value Date Recorded Sex Assigned at Not on file 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 Gender Identity Not on file Sexual Orientation Not on file Occupation Industry Job Start Date Job End Date Not on file Not on file Not on file Not on file Last Filed Vital Signs Vital Sign Reading Time Taken Comments Blood Pressure 100/66 08/02/2023 9:52 AM CDT Pulse 76 08/02/2023 9:52 AM CDT Temperature 35.9 C (96.6 F) 08/02/2023 9:52 AM CDT Respiratory Rate 14 08/02/2023 9:52 AM CDT Oxygen Saturation 96% 08/02/2023 9:52 AM CDT Inhaled Oxygen Concentration - - Weight 70.7 kg (155 lb 12.8 oz) 08/02/2023 9:52 AM CDT Height 152.4 cm (5') 08/03/2021 2:28 PM CDT Body Mass Index 30.43 08/03/2021 2:28 PM CDT Plan of Treatment Upcoming Encounters Date Type Department Care Team (Late st Contact Info) Description 08/01/2024 10:15 AM CDT Office Visit [facility] [address] [facility] [address] [place] [address] Norm Thomas MD [address] [address] [place] [address] Health Maintenance Due Date Last Done Comments Pre-Diabetes and Diabetes Screening 1955 DTAP/TDAP/TD VACCINES (1 - Tdap) 10/19/1975 COLORECTAL SCREENING 2001 Colorectal Cancer Screening 2001 FIT-DNA Q 3 years 2001 FIT/FOBT Q 1 year 2001 Flex Sig/CT Colonography Q 5 years 2001 PNEUMOCOCCAL VACCINE 50+ YEA RS (1 of 1 - PCV) 2006 ZOSTER VACCINE (1 of 2) 2006 BREAST CANCER SCREENING 01/08/2015 01/08/2014, 03/12 OSTEOPOROSIS SCREENING 2021 INFLUENZA VACCINE (#1) 2023 RSV VACCINE (60+ or ) (1 - 1-dose 75+ series) 10/19/2031 Procedures Procedure Name Priority Date/Time Associated Diagnosis Comments MAMMO BILAT DIAGNOSTIC Routine 01/08/2014 from Last 3 Months or Most Recently Relevant to Health Maintenance Results * MAMMO BILAT DIAGNOSTIC (01/08/2014) Anatomical Region Laterality Modality Breast Bilateral Other us Uzma Yates MD MAMMO ORDERABLES Edited R esult - Final from Last 3 Months or Most Recently Relevant to Health Maintenance Insurance [employer] PPO MCR Care Teams Rolled Materials Worker Relationship Specialty Start Date End Date Bora Rodriguez MD [address] [facility] [address] [place] [address] PCP - General Family Practice 01/21/21
--- OUTSIDE RECORDS SUMMARY | 2024-06-28 11:55 | XMS_ITS | Clinical Summary ---
Author Organization [facility] Address [address] [place] [address] Care Team Providers Care Vp Security Name Role Phone Wilfrido García MD Primary Care Provider [phone] Allergies Active Allergy Reactions Criticality Noted Date Comments Celecoxib Hives,Rash High 12/18/2010 Morphine Itching,Nausea and Vomiting Low 01/22/20 21 Medications aspirin 81 MG chewable tablet Chew 81 mg by mouth 2 (two) times daily. Active atorvastatin 40 MG tablet 1 Active Boswellia-Glucos amine-Vit D (OSTEO VB-NYHJ-MPFBDS/5 -LOXIN) Tab Active Calcium Carbonate-Vit D-Min (CALCIUM 600+D3 PLUS MINERALS) 600-800 MG-UNIT Tab Active cholestyramine 4 G packet Take 4 g by mouth daily. Active diphenoxylate-at ropine 2.5-0.025 MG tablet Take 1 tablet by mouth 4 (four) times daily as needed. Active vitamin D2, ergocalciferol, (DRISDOL) 20639 UNITS capsule Take 50,000 Units by mouth every 30 (thirty) days. Active Glucosamine 500 MG Cap Take 500 mg by mouth. Active isosorbide mononitrate ER 30 MG 24 hr tablet Take 30 mg by mouth daily. 1 Active metoprolol succinate ER 25 MG 24 hr tablet Take 25 mg by mouth daily. Active [place]-3 Fatty Acids (RA FISH OIL) 1000 MG Cap Act roosevelt Ascorbic Acid (VITAMIN C) 100 MG tablet Take 100 mg by mouth daily. Active triamterene-hydr oCHLOROthiazide 37.5-25 MG capsule Take 1 capsule by mouth daily. Active gabapentin 300 MG capsuleIndicatio ns:Neck pain,Chronic bilateral low back pain with bilateral sciatica Take 1 in am & 1-2 PO HS 270 capsule 1 2 Active tiZANidine 4 MG tabletIndication s:Neck pain,Chronic bilateral low back pain with bilateral sciatica Take 1 tablet (4 mg total) by mouth every 6 (six) hours as needed. 270 tablet 1 2 Active naproxen 500 MG tabletIndication s:Chronic bilateral low back pain with bilateral sciatica Take 1 tablet (500 mg total) by mouth 2 (two) times daily with meals. 180 tablet 1 2 Active omeprazole 20 MG capsuleIndicatio ns:Gastroesophag eal reflux disease without esophagitis Take 1 capsule (20 mg total) by mouth daily. 90 capsule 1 2 Active ID NOW COVID-19 Kit TEST DIRECTED TODAY 2 Active Active Problems No known active problems Immunizations Name Administration Dates Next Due Influenza Adult (Generic) 03/30/2021,02/13/2020 Family History Medical History Relation Comments Diabetes Father Heart Disease Father Hypertension Father Cancer Mother Diabetes Mother Heart Disease Mother Hypertension Mother Relation Status Comments Father Mother Social History Tobacco Use Types Packs/Day Years Used Date Smoking Tobacco: Former Smokeless Tobacco: Never Tobacco Cessation:Counseling Given: No Alcohol Use Standard Drinks/Week Comments Yes 0 (1 standard drink = 0.6 oz pur e alcohol) SOCIALLY PHQ-2 Answer Date Recorded PHQ-2 Score - If the patient scores above 3, please move on to questions 3-9 0 07/07/2021 Comments No Sex and Gender Information Value Date Recorded Sex Assigned at Not on file 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 Gender Identity Not on file Sexual Orientation Not on file Occupation Industry Job Start Date Job End Date RETIRED1 Not on file Not on file Not on file Last Filed Vital Signs Vital Sign Reading Time Taken Comments Blood Pressure 118/68 08/11/2021 8:43 AM CDT Pulse 74 08/11/2021 8:43 AM CDT Temperature 36.4 C (97.5 F) 08/11/2021 8:43 AM CDT Respiratory Rate 16 08/11/2021 8:43 AM CDT Oxygen Saturation 97% 08/11/2021 8:43 AM CDT Inhaled Oxygen Concentration - - Weight 69.7 kg (153 lb 11.2 oz) 08/11/2021 8:43 AM CDT Height 152.4 cm (5') 08/11/2021 8:43 AM CDT Body Mass Index 30.02 08/11/2021 8:43 AM CDT Plan of Treatment Health Maintenance Due Date Last Done Comments Colorectal Cancer Screening Colonoscopy (10 Years) 1956 Hepatitis C 1974 DTaP, Tdap and Td Vaccines ( 1 - Tdap) 10/19/1975 Mammogram Screening 1996 Zoster Vaccines (1 of 2) 2006 Annual Medicare Wellness Visit 2021 Dexa Scan (General) 2021 Pneumococcal Vaccine: 65+ Years (1 of 1 - PCV) 2021 COVID-19 Vaccine (4 - 2023-2 5 season) 2023 03/05/2021, 08/03/2020, 07/08/2020 Influenza Adult (#1) 2024 03/30/2021, 02/13/2020 RSV Immunization or 60+ Years (1 - 1-dose 75+ series) 10/19/2031 Meningococcal B Vaccine Aged Out No l onger eligible based on patient's age to complete this topic Meningococcal Vaccine Aged Out No rosemary ashli eligible based on patient's age to complete this topic RSV Immunizations Under 20 Months Aged Out No longer eligible b ased on patient's age to complete this topic Insurance A[employer] Care Teams Vp Security Relationship Specialty Start [place]ido [place]ía [place] [address] [place] [address] PCP - General INTERNAL MEDICINE 11/14/23
--- OUTSIDE RECORDS SUMMARY | 2024-06-28 11:55 | XMS_ITS | Referral Summary ---
Author Organization [facility] Address [address] [place] [address] Care Team Providers Care Cosmetic Account Coordinator Name Role Phone Bora Rodriguez MD Primary Care Provider Agustin Campos MD Unavailable [phone] Encounters Date Type Department Care Team Description 06/20/2024 11:00 AM WINDOWS TECHNICAL SPECIALIST Office Visit [facility] Op[facility]mology [address] [place] [address], [address] [facility] [place] [phone] Latrell Morrison, OD Pigment dispersion syndrome of iris, bilateral (Primary Dx); Nuclear sclerotic cataract of both eyes 06/20/2024 10:20 AM WINDOWS TECHNICAL SPECIALIST Imaging Exam [facility] [address] [place] [phone] Pigment dispersion syndrome of iris, bilateral; OAG (open angle glaucoma) suspect, low risk, bilateral 06/20/2024 10:00 AM WINDOWS TECHNICAL SPECIALIST Imaging Exam [facility] [address] [place] [phone] Pigment dispersion syndrome of iris, bilateral; OAG (open angle glaucoma) suspect, low risk, bilateral 06/18/2024 Orders Only [facility] [address] [place] [phone] Latrell Morrison, OD OAG (open angle glaucoma) suspect, low risk, bilateral (Primary Dx); Pigment dispersion syndrome of iris, bilateral from Last 3 Months Allergies Active Allergy Reactions Criticality Noted Date Comments Celecoxib Hives,Rash High 12/18/2010 Morphine Itching,Nausea And Vomiting Low 01/22/20 21 Medications aspirin 81 mg tablet 325 mg Active atorvastatin (LIPITOR) 40 mg tablet 01/06/2018 Active Ca-D3-mag ze-podw-xyk-man g-bor 600 mg calcium- 800 unit-50 mg tablet Active ergocalciferol (VITAMIN D) 50,000 unit capsule TAKE ONE CAPSULE BY MOUTH 2 TIMES PER MONTH 4 12/08/2017 Active fenofibrate (TRICOR) 54 mg tablet Active omega 0-cll-jan-fish oil (FISH OIL) 100-160-1,000 mg capsule Active metoprolol XL (TOPROL-XL) 25 mg 24 hr tablet 01/31/2018 Act [place] multivitamin tabletIndicatio ns:Vitamin Deficiency Prevention Active niacin ER (NIASPAN) 250 mg CR capsule Active TRIAMTERENE-HYD ROCHLOROTHIAZID E 37.5-25 mg per capsule 12/28/2017 Active nitroglycerin (NITROSTAT) 0.[address] 1 tablet (0.4 mg total) under the tongue every 5 (five) minutes as needed for chest pain May repeat dose q 5 min, up to 3 doses total 25 tablet 2 03/02/2021 Active ascorbic acid (VITAMIN C) 100 mg tablet Take 1 tablet (100 mg total) by mouth daily Active gabapentin (NEURONTIN) 300 mg capsule Take 1 in am & 1-2 PO HS 08/11/2021 Active sucralfate (CARAFATE) 1 gram tablet 1 G ORALLY EVERY 6 HOURS FOR 1 MONTH 08/13/2022 Active tiZANidine (ZANAFLEX) 4 mg tablet Take 1 tablet (4 mg total) by mouth every 6 (six) hours as needed 07/07/2021 Active omeprazole (PriLOSEC) 40 mg capsule Take 1 capsule (40 mg total) by mouth 2 (two) times a day 09/06/2022 Active Active Problems Problem Noted Date Diagnosed Date Precordial chest pain 02/13/2021 Assessment & Plan (02/13/2021 9:33 AM CDT): Patient presents for an evaluation precordial chest pain in the setting of treated hyperlipidemia, remote tobacco use, and a family history of premature coronary disease. She has both typical and atypical components to her chest pain story. Her stress test is abnormal. We discussed the limitations of this particular type of stress testing however taken together with her risk factors and symptoms I believe it is reasonable to conclude that she likely has ischemic heart disease. We had a lengthy discussion regarding evaluation options. I shared with her that I did not believe that stress testing with imaging would be valuable. I have recommended cardiac catheterization. The risks and benefits have been discussed. She is reluctant to proceed however will consider this recommendation over the next several days. In the interim will start isosorbide 30 mg daily. Mixed hyperlipidemia 02/13/2021 Assessment & Plan (02/13/2021 9:34 AM CDT): Lipid panel obtained today. Her LDL is 80 mg/dL. Continue atorvastatin. Dyspnea on exertion 02/13/2021 Assessment & Plan (02/13/2021 9:35 AM CDT): Possibly result of ischemic heart disease but also shares with me at the end of her conversation that she has experienced a nonproductive cough. Will obtain a chest x-ray. Bilateral ocular hypertension 03/08/2018 Assessment & Plan (03/08/2018 11:26 AM WINDOWS TECHNICAL SPECIALIST): Hx of oc htn with ?hx of PDS. IOP acceptable today off drops. Has been acceptable for the past several visits. No changes on visual field today. Okay to monitor annually RTC x 1 year for annual exam + 24-2 VF + RNFL OCT. Sooner PRN Pigment dispersion syndrome of iris, bilateral 1 05/08/2017 Assessment & Plan (03/08/2018 11:28 AM WINDOWS TECHNICAL SPECIALIST): Same. Nuclear sclerotic cataract of both eyes 03/08/20 18 Assessment & Plan (03/08/2018 11:27 AM WINDOWS TECHNICAL SPECIALIST): Not vis sig. Monitor. Social History Tobacco Use Types Packs/Day Years Used Date Smoking Tobacco: Former Cigarettes Q uit: 2009 Smokeless Tobacco: Never Tobacco Cessation:Counseling Given: Not Answered AUDIT-C Answer Date Recorded Q1: How often do you have a drink containing alc ohol? Never 03/10/2021 Average Number of Drinks Not on file 021 Frequency of Binge Drinking Not on file 02/23 Comments Unknown Sex and Gender Information Value Date Recorded Sex Assigned at Not on file Legal Sex Female 1:35 AM WINDOWS TECHNICAL SPECIALIST Gender Identity Not on file Sexual Orientation Not on file Last Filed Vital Signs Vital Sign Reading Time Taken Comments Blood Pressure 120/66 03/10/2021 4:17 PM WINDOWS TECHNICAL SPECIALIST Pulse 92 03/10/2021 4:17 PM WINDOWS TECHNICAL SPECIALIST Temperature 37.1 C (98.7 F) 03/10/2021 12:30 PM WINDOWS TECHNICAL SPECIALIST Respiratory Rate 18 03/10/2021 4:17 PM WINDOWS TECHNICAL SPECIALIST Oxygen Saturation 96% 03/10/2021 4:17 PM WINDOWS TECHNICAL SPECIALIST Inhaled Oxygen Concentration - - Weight 68 kg (150 lb) 10/13/2022 2:57 PM CDT Height 152.4 cm (5') 10/13/2022 2:57 PM CDT Body Mass Index 29.29 10/13/2022 2:57 PM CDT Plan of Treatment Not on file Procedures Procedure Name Priority Date/Time Associated Diagnosis Comments HARPER VISUAL FIELD - OU - BOTH EYES Routine 06/20/2024 10:49 AM WINDOWS TECHNICAL SPECIALIST Pigment dispersion syndrome of iris, bilateral OAG (open angle glaucoma) suspect, low risk, bilateral OCT, OPTIC NERVE - OU - BOTH EYES Routine 06/20/2024 10:44 AM WINDOWS TECHNICAL SPECIALIST Pigment dispersion syndrome of iris, bilateral OAG (open angle glaucoma) suspect, low risk, bilateral from Last 3 Months Results * Harper Visual Field - OU - Both Eyes (06/20/2024 10:49 AM WINDOWS TECHNICAL SPECIALIST) Pattern Deviation OS 1.56 dB CONTINUUM Pattern Deviation OD 1.51 dB CONTINUUM Mean Deviation OS 0.26 dB CONTINUUM Mean Deviation OD 0.57 dB CONTINUUM Anatomical Region Laterality Modality Head Other Narrative 06/20/2024 1:30 PM WINDOWS TECHNICAL SPECIALIST Right Eye Fixation was good. Cooperation was good. Reliability was borderline. Progression has been stable. Foveal threshold was normal. Findings include normal observations, non-specific defects. Mean Deviation was 0.57 dB. Pattern Deviation was 1.51 dB. Left Eye Fixation was good. Cooperation was good. Reliability was good. Progression has been stable. Foveal threshold was normal. Findings include normal observations, non-specific defects. Mean Deviation was 0.26 dB. Pattern Deviation was 1.56 dB. Latrell Morrison OD OPHTH VISUAL FIELD Final Res ult * OCT, Optic Nerve - OU - Both Eyes (06/20/2024 10:44 AM WINDOWS TECHNICAL SPECIALIST) RNFL OS 87 micrometers CONTINUUM RNFL OD 86 micrometers CONTINUUM Anatomical Region Laterality Modality Head Other Narrative 06/20/2024 10:44 AM WINDOWS TECHNICAL SPECIALIST Right Eye Reliability was good. Temporal progression was stable. Temporal thickness was normal. Superior progression was stable. Superior thickness was normal. Nasal progression was stable. Nasal thickness was normal. Inferior progression was stable. Inferior thickness was normal. Average RNFL thickness 86 micrometers. Left Eye Reliability was good. Temporal progression was stable. Temporal thickness was showing abnormal thinning. Superior progression was stable. Superior thickness was normal. Nasal progression was stable. Nasal thickness was showing abnormal thinning. Inferior progression was stable. Inferior thickness was normal. Average RNFL thickness 87 micrometers. Latrell Morrison OD OPHTH TOMOGRAPHY Final Resul t from Last 3 Months Insurance FORMERLY [facility] MEDICARE [facility] MEDICARE Address: [facility] [id number] [place] [id number] [facility] [employer] MEDICARE [facility] MEDICARE Address: [address] [place] [address] Advance Directives For more information, please contact: [phone] * Full Code (Latest Code Status on File) Date Activated Date Inactivated Comments 03/10/2021 1:49 PM 03/10/2021 8:31 PM Care Teams Cosmetic Account Coordinator Relationship Specialty Start Date End Date Bora Rodriguez MD [address] [place] [address] PCP - General Family Medicine 08/13/19 Agustin Campos MD [address] [place] [address] Consulting Physician Cardiology 02/17/21
--- OUTSIDE RECORDS SUMMARY | 2024-06-28 11:56 | XMS_ITS | Encounter Summary ---
Author Organization [facility] Address [address] [place] [address] Care Team Providers Care Typing Bookkeeper Name Role Phone Bora Rodriguez MD Primary Care Provider [phone] Encounter Details Date Type Department Care Team (Latest Contact Info) Description 09/14/2006 Outpatient Historical [facility] Ward, Casi Rothman MD NO ADDRESS ON FILE Diffuse Cystic Mastopathy (Primary Dx) Social History Tobacco Use Types Packs/Day Years Used Date Smoking Tobacco: Never Assessed Comments Unknown Sex and Gender Information Value Date Recorded Sex Assigned at Not on file Legal Sex Female 2:57 AM FLYING SHEAR OPERATOR Gender Identity Not on file Sexual Orientation Not on file documented as of this encounter Plan of Treatment Upcoming Encounters Date Type Department Care Team (Late st Contact Info) Description 08/01/2024 10:15 AM CDT Office Visit [facility] Oncology and Hematology - [place] [address] [facility] [address] [place] [address] Norm Thomas MD [address] [facility] [address] [place] [address] documented as of this encounter Visit Diagnoses Diagnosis Diffuse cystic mastopathy- Primary documented in this encounter Care Teams Typing Bookkeeper Relationship Specialty Start Date End Date Bora Rodriguez MD [address] [facility] [address] [place] [address] PCP - General Family Practice 01/21/21 documented as of this encounter
--- OUTSIDE RECORDS SUMMARY | 2024-06-28 11:56 | XMS_ITS | Encounter Summary ---
Author Organization [facility] Address [address] [place] [address] Care Team Providers Care Heel Gummer Name Role Phone Bora Rodriguez MD Primary Care Provider [phone] Encounter Details Date Type Department Care Team (Latest Contact Info) Description 07/31/2003 Outpatient Historical HIS [facility] Ward, Casi Rothman MD NO ADDRESS ON FILE DIFFUS CYSTIC MASTOPATHY (Primary Dx) Social History Tobacco Use Types Packs/Day Years Used Date Smoking Tobacco: Never Assessed Comments Unknown Sex and Gender Information Value Date Recorded Sex Assigned at Not on file Legal Sex Female 2:57 AM CIGARETTE STAMPER Gender Identity Not on file Sexual Orientation Not on file documented as of this encounter Plan of Treatment Upcoming Encounters Date Type Department Care Team (Late st Contact Info) Description 08/01/2024 10:15 AM CDT Office Visit [facility] Oncology and Hematology - [place] [address] [facility] [address] [place] [address] Norm Thoams MD [address] [facility] [address] [place] [address] documented as of this encounter Visit Diagnoses Diagnosis Diffuse cystic mastopathy- Primary documented in this encounter Care Teams Heel Gummer Relationship Specialty Start Date End Date Bora Rodriguez MD [address] [facility] [address] [place] [address] PCP - General Family Practice 01/21/21 documented as of this encounter
--- OUTSIDE RECORDS SUMMARY | 2024-06-28 11:56 | XMS_ITS | Encounter Summary ---
Author Organization [facility] Address [address] [place] [address] Care Team Providers Care Dog Beautician Name Role Phone Bora Rodriguez MD Primary Care Provider [phone] Encounter Details Date Type Department Care Team (Late st Contact Info) Description 06/27/2024 External Device Data [facility] ABSTRACTION Provider, Abstract NO ADDRESS ON FILE Social History Tobacco Use Types Packs/Day Years Used Date Smoking Tobacco: Former Cigarettes Q uit: 07/31/2008 Smokeless Tobacco: Never Alcohol Use Standard Drinks/Week Comments Yes 0 (1 standard drink = 0.6 oz pur e alcohol) Comments Unknown Sex and Gender Information Value Date Recorded Sex Assigned at Not on file Legal Sex Female 2:57 AM SERVICE DESK DIRECTOR Gender Identity Not on file Sexual Orientation Not on file Occupation Industry Job Start Date Job End Date Not on file Not on file Not on file Not on file documented as of this encounter Plan of Treatment Upcoming Encounters Date Type Department Care Team (Late st Contact Info) Description 08/01/2024 10:15 AM CDT Office Visit [facility] Oncology and Hematology - [place] [address] [facility] [address] [place] [address] Norm Thomas MD [address] [facility] [address] [place] [address] documented as of this encounter Visit Diagnoses Not on filedocumented in this encounter Care Teams Dog Beautician Relationship Specialty Start Date End Date Bora Rodriguez MD [address] [facility] [address] [place] [address] PCP - General Family Practice 01/21/21 documented as of this encounter
--- OUTSIDE RECORDS SUMMARY | 2024-06-28 11:56 | XMS_ITS | Referral Summary ---
Author Organization [facility] Address [address] [facility] [place] [address] Care Team Providers Care Hydraulic Assembler Name Role Phone Sumanth Parker MD Primary Care Provider [phone] Source Comments [facility],non-owned Affiliates and Associated Physician Practices is amultiple site organization consisting of ambulatory clinics and hospital sitesin [place], [place], [place] and [place]. This disclosure is being madepursuant to the Care Everywhere program and may not contain all information available regarding this patient. Last updated 18.[facility] Allergies Active Allergy Reactions Criticality Noted Date Comments Celecoxib Rash High 12/18/2010 Medications * Be aware that medications may not be up to date on this document. Alwaysverify current medications with the patient. Medication Sig Dispensed Refills Start Date End Date Status dipyridamole (PERSANTINE) 50 MG tablet Take 50 mg by mouth 4 times daily. Active metoprolol succinate XL 24hr (TOPROL XL) 25 MG tablet Take 25 mg by mouth once daily. Active ezetimibe-simvastatin (VYTORIN) 10-40 MG tablet Take 1 Tab by mouth at bedtime. Active cholestyramine (QUESTRAN) 4 GM powder Take 4 g by mouth once daily. Active diphenoxylate-atropine (LOMOTIL) 2.5-0.025 MG tablet Take 1 Tab by mouth 4 times daily as needed. Active aspirin 81 MG chew tablet Take 81 mg by mouth once daily. Active calcium carbonate (CALTRATE) 600 MG tablet Take 1 Tab by mouth daily with food. Active multivitamin daily (THERAGRAN) tablet Take 1 Tab by mouth daily with food. Active fish oil/omega-3 fatty acids (FISH OIL) 1000 MG capsule Take 1,000 mg by mouth 3 times daily with meals. Active niacin, Immediate Release, 250 MG tablet Take 250 mg by mouth at bedtime. Active glucosamine (GLUCOSAMINE) 500 MG capsule Take 500 mg by mouth 3 times daily with meals. Active vitamin D, ergocalciferol, (DRISDOL) 58275 UNIT capsule Take 50,000 Units by mouth every 30 days. Active Cholecalciferol (VITAMIN D) 1000 UNIT capsule Take 1,000 Units by mouth once daily. Active Social History Tobacco Use Types Packs/Day Years Used Date Smoking Tobacco: Former Cigarettes Q uit: 04/25/2008 Smokeless Tobacco: Never Alcohol Use Standard Drinks/Week Comments No 0 (1 standard drink = 0.6 oz pur e alcohol) Sex and Gender Information Value Date Recorded Sex Assigned at Not on file Gender Identity Not on file Sexual Orientation Not on file Last Filed Vital Signs Vital Sign Reading Time Taken Comments Blood Pressure - - Pulse - - Temperature - - Respiratory Rate - - Oxygen Saturation - - Inhaled Oxygen Concentration - - Weight 68 kg (150 lb) 12/18/2010 7:35 AM CDT Height 152.4 cm (5') 12/18/2010 7:35 AM CDT Body Mass Index 29.29 12/18/2010 7:35 AM CDT Plan of Treatment Not on file Care Teams Hydraulic Assembler Relationship Specialty Start Date End Date Sumanth Parker MD [address] [place] [phone] PCP - General 12/16/10
--- OUTSIDE RECORDS SUMMARY | 2024-06-28 11:56 | XMS_ITS | Encounter Summary ---
Author Organization [facility] Address 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 Oncology and Hematology - [place] [address] [facility] [address] [place] [address] Norm Thomas MD [address] [facility] [address] [place] [address] documented as of this encounter Visit Diagnoses Diagnosis Diffuse cystic mastopathy- Primary documented in this encounter Care Teams Head Lineman Relationship Specialty Start Date End Date Bora Rodriguez MD [address] [facility] [address] [place] [address] PCP - General Family Practice 01/21/21 documented as of this encounter
--- OUTSIDE RECORDS SUMMARY | 2024-06-28 11:56 | XMS_ITS | Clinical Summary ---
Author Organization [facility] Address [address] [place] [address] Care Team Providers Care Residential Driver Name Role Phone Sumanth Parker MD Primary Care Provider [phone] Source Comments [facility],non-owned Affiliates and Associated Physician Practices is amultiple site organization consisting of ambulatory clinics and hospital sitesin [place], [place], [place] and [place]. This disclosure is being madepursuant to the Care Everywhere program and may not contain all information available regarding this patient. Last updated 18.[facility] Allergies Active Allergy Reactions Criticality Noted Date [...] with meals. Active vitamin D, ergocalciferol, (DRISDOL) 32387 UNIT capsule Take 50,000 Units by mouth [...] 12/18/2010 7:35 AM CDT Plan of Treatment Health Maintenance Due Date Last Done Comments BONE DENSITY TESTING 1955 COLOGUARD (AGES 45-75) - COL ON CA SCREENING 1956 COLON MONITORING 1956 COLONOSCOPY - COLON CA SCREENING 1956 CT COLONOGRAPHY - COLON CA SCREENING 1956 Colorectal Cancer Screening 1956 FIT - COLON CA SCREENING 1956 FLEX SIG - COLON CA SCREENING 1956 MAMMOGRAM 1956 HEPATITIS C SCREENING 10/14/1974 DTAP/TDAP/TD VACCINES (1 - Tdap) 10/19/1975 PNEUMOCOCCAL VACCINE 50+ (1 of 1 - PCV) 2006 ZOSTER VACCINE (1 of 2) 2006 COVID-19 VACCINE ( - 2023-2 5 season) 2023 INFLUENZA VACCINE (#1) 2023 DEPRESSION SCREENING 04/25/2024 MEDICARE AWV CALENDAR YEAR 2024 Respiratory Syncytial Virus (RSV) Vaccine Pt: or over 60 yrs (1 - 1-dose 75+ series) 10/19/2031 HEPATITIS B VACCINE Aged Out No longe r eligible based on patient's age to complete this topic HIB VACCINE Aged Out No longer eligi ble based on patient's age to complete this topic HPV VACCINE Aged Out No longer eligi ble based on patient's age to complete this topic MENINGOCOCCAL (Group B) VACCINE Aged Out No longer eligible based on patient's age to complete this topic MENINGOCOCCAL VACCINE Aged Out No rosemary ashli eligible based on patient's age to complete this topic Care Teams Residential Driver Relationship Specialty Start Date End Date Sumanth Parker MD [address] [place] [address] PCP - General 12/16/10
--- OUTSIDE RECORDS SUMMARY | 2024-06-28 11:56 | XMS_ITS | Patient Health Summary ---
Author Organization [facility] Address [address] [facility] [place] [address] Care Team Providers Care Hydroelectric Machinery Mechanic Helper Name Role Phone Sumanth Parker MD Primary Care Provider [phone] Note from [facility],non-owned Affiliates and Associated Physician Practices is amultiple site organization consisting of ambulatory clinics and hospital sitesin [place], [place], [place] and [place]. This disclosure is being madepursuant to the Care Everywhere program and may not contain all information available regarding this patient. Last updated 18.[facility] Allergies * Celecoxib(Rash) -High Criticality Medications * Be aware that medications may not be up to date on this document. Alwaysverify current medications with the patient. * dipyridamole (PERSANTINE) 50 MG tablet Take 50 mg by mouth 4 times daily. * metoprolol succinate XL 24hr (TOPROL XL) 25 MG tablet Take 25 mg by mouth once daily. * ezetimibe-simvastatin (VYTORIN) 10-40 MG tablet Take 1 Tab by mouth at bedtime. * cholestyramine (QUESTRAN) 4 GM powder Take 4 g by mouth once daily. * diphenoxylate-atropine (LOMOTIL) 2.5-0.025 MG tablet Take 1 Tab by mouth 4 times daily as needed. * aspirin 81 MG chew tablet Take 81 mg by mouth once daily. * calcium carbonate (CALTRATE) 600 MG tablet Take 1 Tab by mouth daily with food. * multivitamin daily (THERAGRAN) tablet Take 1 Tab by mouth daily with food. * fish oil/omega-3 fatty acids (FISH OIL) 1000 MG capsule Take 1,000 mg by mouth 3 times daily with meals. * niacin, Immediate Release, 250 MG tablet Take 250 mg by mouth at bedtime. * glucosamine (GLUCOSAMINE) 500 MG capsule Take 500 mg by mouth 3 times daily with meals. * vitamin D, ergocalciferol, (DRISDOL) 22152 UNIT capsule Take 50,000 Units by mouth every 30 days. * Cholecalciferol (VITAMIN D) 1000 UNIT capsule Take 1,000 Units by mouth once daily. Social History Tobacco Use Types Packs/Day Years [...] Mass Index 29.29 12/18/2010 7:35 AM CDT Care Teams Hydroelectric Machinery Mechanic Helper Relationship Specialty Start Date End Date Sumanth Parker MD [address] [place] [address] PCP - General 12/16/10
--- OUTSIDE RECORDS SUMMARY | 2024-06-28 11:56 | XMS_ITS | Clinical Summary ---
Author Organization [facility] Address [address] [place] [address] Care Team Providers Care Shoe Salesman Name Role Phone Bora Rodriguez MD Primary Care Provider Agustin Campos MD Unavailable [phone] Allergies Active Allergy Reactions Criticality Noted Date Comments Celecoxib Hives,Rash High 12/18/2010 Morphine Itching,Nausea And Vomiting Low 01/22/20 21 Medications aspirin 81 mg tablet 325 mg Active atorvastatin (LIPITOR) 40 mg tablet 01/06/2018 Active Ca-D3-mag oy-zqgr-fcy-man g-bor 600 mg calcium- 800 unit-50 mg tablet Active ergocalciferol (VITAMIN D) 50,000 unit capsule TAKE ONE CAPSULE BY MOUTH 2 TIMES PER MONTH 4 12/08/2017 Active fenofibrate (TRICOR) 54 mg tablet Active omega 5-adb-lrc-fish oil (FISH OIL) 100-160-1,000 mg capsule Active metoprolol XL (TOPROL-XL) 25 mg 24 hr tablet 01/31/2018 Act roosevelt multivitamin tabletIndicatio ns:Vitamin Deficiency Prevention Active niacin [...] 03/08/2018 Assessment & Plan (03/08/2018 11:26 AM STRAIGHTEDGE WORKER): Hx of oc htn with ?hx of PDS. IOP acceptable today off drops. Has been acceptable for the past several visits. No changes on visual field today. Okay to monitor annually RTC x 1 year for annual exam + 24-2 VF + RNFL OCT. Sooner PRN Pigment dispersion syndrome of iris, bilateral 1 05/08/2017 Assessment & Plan (03/08/2018 11:28 AM STRAIGHTEDGE WORKER): Same. Nuclear sclerotic cataract of both eyes 03/08/20 18 Assessment & Plan (03/08/2018 11:27 AM STRAIGHTEDGE WORKER): Not vis sig. Monitor. Encounters Date Type Department Care Team Description 06/20/2024 11:00 AM STRAIGHTEDGE WORKER Office Visit [facility] [address] [place] [address], [address] [place] [address] Latrell Morrison, OD Pigment dispersion syndrome of iris, bilateral (Primary Dx); Nuclear sclerotic cataract of both eyes 06/20/2024 10:20 AM STRAIGHTEDGE WORKER Imaging Exam [facility] [address] [place] [phone] Pigment dispersion syndrome of iris, bilateral; OAG (open angle glaucoma) suspect, low risk, bilateral 06/20/2024 10:00 AM STRAIGHTEDGE WORKER Imaging Exam [facility] [address] [place] [phone] Pigment dispersion syndrome of iris, bilateral; OAG (open angle glaucoma) suspect, low risk, bilateral 06/18/[address] [facility] [address] [place] [phone] Latrell Morrison, OD OAG (open angle glaucoma) suspect, low risk, bilateral (Primary Dx); Pigment dispersion syndrome of iris, bilateral from Last 3 Months Surgical History Surgery Date Site/Laterality Comments CHOLECYSTECTOMY HERNIA REPAIR CARPAL TUNNEL RELEASE BREAST LUMPECTOMY Medical History Medical History Date Comments Hypertension SVT (supraventricular tachycardia) Fibromyalgia Hyperlipidemia Family History Medical History Relation Name Comments Diabetes Brother Family history of diabetes mellitus - (Added by TW Conv) Diabetes Father Family history of diabetes mellitus - (Added by TW Conv) Hypertension Father Family history of hypertension - (Added by TW Conv) Cancer Mother Family history of cancer - (Added by TW Conv) Glaucoma Mother Family history of glaucoma - (Added by TW Conv) Hypertension Mother Family history of hypertension - (Added by TW Conv) Hypertension Other Family history of hypertension - (Added by TW Conv) Relation Name Status Comments Brother Father Mother Other Social History Tobacco Use Types Packs/Day Years [...] on file Legal Sex Female 1:35 AM STRAIGHTEDGE WORKER Gender Identity Not on file Sexual Orientation Not on file Obstetrics History Last Filed Vital Signs Vital Sign Reading Time Taken Comments Blood Pressure 120/66 03/10/2021 4:17 PM STRAIGHTEDGE WORKER Pulse 92 03/10/2021 4:17 PM STRAIGHTEDGE WORKER Temperature 37.1 C (98.7 F) 03/10/2021 12:30 PM STRAIGHTEDGE WORKER Respiratory Rate 18 03/10/2021 4:17 PM STRAIGHTEDGE WORKER Oxygen Saturation 96% 03/10/2021 4:17 PM STRAIGHTEDGE WORKER Inhaled Oxygen Concentration - - Weight 68 kg (150 lb) 10/13/2022 2:57 PM CDT Height 152.4 cm (5') 10/13/2022 2:57 PM CDT Body Mass Index 29.29 10/13/2022 2:57 PM CDT Plan of Treatment Health Maintenance Due Date Last Done Comments Breast Cancer Screening-Mammogram 1956 Colon Cancer Screening-Colonoscopy 1955 Depression Screening 1956 Hepatitis C Screening 1956 Osteoporosis Screening-Bone Density Scan 1956 DTaP/Tdap/Td Vaccine (1 - Tdap) 10/19/1967 Hepatitis B Screening 1974 Pneumococcal vaccine 65+ (1 of 1 - PCV) 2006 Zoster Vaccine (1 of 2) 2006 Well Visit 65+ 2021 Fall Risk Assessment 03/10/2022 03/10/2021 Covid-19 Vaccine ( season) 12/25/202302/2021, 07/08/2020 Influenza Vaccine (#1) 2023 03/30/2021, 2019 Procedures Procedure Name Priority Date/Time Associated Diagnosis Comments HARPER VISUAL FIELD - OU - BOTH EYES Routine 06/20/2024 10:49 AM STRAIGHTEDGE WORKER Pigment dispersion syndrome of iris, bilateral OAG (open angle glaucoma) suspect, low risk, bilateral OCT, OPTIC NERVE - OU - BOTH EYES Routine 06/20/2024 10:44 AM STRAIGHTEDGE WORKER Pigment dispersion syndrome of iris, bilateral OAG (open angle glaucoma) suspect, low risk, bilateral from Last 3 Months Results * Harper Visual Field - OU - Both Eyes (06/20/2024 10:49 AM STRAIGHTEDGE WORKER) Pattern Deviation OS 1.56 dB CONTINUUM Pattern Deviation OD 1.51 dB CONTINUUM Mean Deviation OS 0.26 dB CONTINUUM Mean Deviation OD 0.57 dB CONTINUUM Anatomical Region Laterality Modality Head Other Narrative 06/20/2024 1:30 PM STRAIGHTEDGE WORKER Right Eye Fixation was good. Cooperation was [...] 0.26 dB. Pattern Deviation was 1.56 dB. us Latrell Morrison OD OPHTH VISUAL FIELD Final Res ult * OCT, Optic Nerve - OU - Both Eyes (06/20/2024 10:44 AM STRAIGHTEDGE WORKER) RNFL OS 87 micrometers CONTINUUM RNFL OD 86 micrometers CONTINUUM Anatomical Region Laterality Modality Head Other Narrative 06/20/2024 10:44 AM STRAIGHTEDGE WORKER Right Eye Reliability was good. Temporal progression [...] was normal. Average RNFL thickness 87 micrometers. us Latrell Morrison OD OPHTH TOMOGRAPHY Final Resul t from Last 3 Months Insurance AET[employer] MEDICARE [facility] MEDIC[facility] Address: [facility] [id number] [place] [phone] [facility]PPO Address: [facility] [id number] [place] [phone] [facility] HMO AET MEDICARE [facility] Address: [facility] [id number] [place] [phone] Advance Directives For more information, please contact: [phone] * Full Code (Latest Code Status on File) Date Activated Date Inactivated Comments 03/10/2021 1:49 PM 03/10/2021 8:31 PM Care Teams Shoe Salesman Relationship Specialty Start Date End Date Bora Rodriguez MD [address] [place] [address] PCP - General Family Medicine 08/13/19 Agustin Campos MD [address] [place] [address] Consulting Physician Cardiology 02/17/21
--- OUTSIDE RECORDS SUMMARY | 2024-06-28 11:56 | XMS_ITS | Encounter Summary ---
Author Organization [facility] Address [address] [place] [address] Care Team Providers Care Diplomatic Courier Name Role Phone Bora Rodriguez MD Primary Care Provider [phone] Encounter Details Date Type Department Care Team (Latest Contact Info) Description 07/28/2004 Outpatient Historical [facility] Ward, Casi Rothman MD NO ADDRESS ON FILE UNSP ABNORMAL MAMMOGRAM (Primary Dx) Social History Tobacco Use Types Packs/Day Years Used Date Smoking Tobacco: Never Assessed Comments Unknown Sex and Gender Information Value Date Recorded Sex Assigned at Not on file Legal Sex Female 2:57 AM DISINTEGRATOR FEEDER Gender Identity Not on file Sexual Orientation Not on file documented as of this encounter Plan of Treatment Upcoming Encounters Date Type Department Care Team (Late st Contact Info) Description 08/01/2024 10:15 AM CDT Office Visit [facility] Oncology and Hematology - [place] [address] [facility] [address] [place] [address] Norm Thomas MD [address] [facility] [address] [place] [address] documented as of this encounter Visit Diagnoses Diagnosis Abnormal mammogram, unspecified- Primary documented in this encounter Care Teams Diplomatic Courier Relationship Specialty Start Date End Date Bora Rodriguez MD [address] [place] [address] PCP - General Family Practice 01/21/21 documented as of this encounter
--- OUTSIDE RECORDS SUMMARY | 2024-06-28 11:56 | XMS_ITS | Encounter Summary ---
Author Organization [facility] Address 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 Gender Identity Not on file Sexual Orientation Not on file Occupation Industry Job Start Date Job End Date Not on file Not on file Not on file Not on file documented as of this encounter Plan of Treatment Upcoming Encounters Date Type Department Care Team (Late st Contact Info) Description 08/01/2024 10:15 AM CDT Office Visit [facility] Oncology and Hematology - [place] [address] [facility] [address] [place] [address] Norm Thomas MD [address] [facility] [address] [place] [address] documented as of this encounter Visit Diagnoses Not on filedocumented in this encounter Care Teams Perfumer Relationship Specialty Start Date End Date Bora Rodriguez MD [address] [facility] [address] [place] [address] PCP - General Family Practice 01/21/21 documented as of this encounter
--- NOTE | 2024-06-28 12:00 | NEURO_ITS ---
Clinical note: Patient is 68-year-old with history of paresthesias in both upper limbs. No history of diabetes mellitus. She had a surgery for right carpal tunnel syndrome in the past. On a brief examination no focal muscle wasting or weakness or fasciculations are seen. The results of nerve can study and EMG are given below. Summary of findings: 1. Left and right median motor distal latencies were mildly prolonged and right and normal on the left side. Amplitudes were mildly decreased. Conduction velocities were within normal limits. 2. Left and right ulnar motor distal latencies and amplitudes and conduction velocities were within acceptable normal limits. There is no focal slowing noted across the elbow. 3. Left median palmar and digital sensory distal latency is moderately prolonged. However right median palmar and digital sensory distal latencies were within normal limits but right median palmar sensory distal latency was mildly prolonged compared to the radial sensory distal latency. Right and left ulnar palmar and digital sensory distal latency and amplitudes were within normal limits. Right and left radial sensory distal latency and amplitudes within normal limits. 4. Right median motor distal latency was mildly prolonged compared to the right ulnar motor distal latency. 5. EMG examination performed using a monopolar needle electrode were by various muscles in C5-T1 distribution examined in both upper limbs. These did not show any significant denervation changes. Mild decreased recruitment was noted in the left abductor pollicis brevis. Impression: EMG nerve can study of both upper limbs are supportive diagnosis of mild to moderate bilateral carpal tunnel syndrome left more than right side. It should be noted that on the right side motor involvement appears to be greater than sensory components. in view of the surgery for carpal tunnel syndrome on the right side the above may be considered residual findings. Mild decreased recruitment was noted in the left abductor pollicis brevis. Remainder of the findings are considered within acceptable normal limits. Shara Robb MD, FAAN, FAANEM Neurologist Motor Nerve Results ? Latency Amplitude F-Lat Segment Distance CV Comment Site (ms) (mV) (ms) (cm) (m/s) Left Median (APB) Motor Wrist 4.3 4.4 Elbow 7.5 4.4 Elbow-Wrist 180 56 Right Median (APB) Motor Wrist 4.5 4.1 Elbow 7.1 4.2 Elbow-Wrist 185 71 Left Ulnar (ADM) Motor Wrist 3.2 9.4 Bel Elbow 5.9 9.2 Bel Elbow-Wrist 175 65 Abv Elbow 7.2 9.1 Abv Elbow-Bel Elbow 75 58 Right Ulnar (ADM) Motor Wrist 2.7 10.3 Bel Elbow 5.7 9.8 Bel Elbow-Wrist 175 58 Abv Elbow 7.1 9.3 Abv Elbow-Bel Elbow 70 50 Sensory Nerve Results ? Latency (Peak) Amplitude (P-P) Segment Distance CV Comment Site (ms) (?V) (cm) (m/s) Left Median DigIII Sensory Wrist-Dig III 3.9 48 Wrist-Dig III 135 35 Right Median DigIII Sensory Wrist-Dig III 3.2 39 Wrist-Dig III 140 44 Left Median-Ulnar Palmar Sensory ? Median Palm-Wrist 2.9 27 Palm-Wrist 80 28 ? Ulnar Palm-Wrist 2.1 18 Palm-Wrist 80 38 Right Median-Ulnar Palmar Sensory ? Median Palm-Wrist 2.1 59 Palm-Wrist 80 38 ? Ulnar Palm-Wrist 1.70 45 Palm-Wrist 80 47 Left Radial Sensory Forearm-Wrist 1.58 35 Forearm-Wrist 100 63 Right Radial Sensory Forearm-Wrist 1.63 51 Forearm-Wrist 100 61 Left Ulnar Sensory Wrist-Dig V 2.9 51 Wrist-Dig V 135 47 Right Ulnar Sensory Wrist-Dig V 2.9 51 Wrist-Dig V 145 50 Electromyography ?Side Muscle Nerve Ins Act Fibs Psw Amp Dur Recrt Comment Right Deltoid Axillary Nml Nml Nml Nml Nml Nml Right Triceps Radial Nml Nml Nml Nml Nml Nml Right ExtCarUln Radial (Post Int) Nml Nml Nml Nml Nml Nml Right FlexPolLong Median (Ant Int) Nml Nml Nml Nml Nml Nml Right 1stDorInt Ulnar Nml Nml Nml Nml Nml Nml Right Abd Poll Brev Median Nml Nml Nml Nml Nml Nml Right FlexDigProf Ulnar Nml Nml Nml Nml Nml Nml Right FlexCarRad Median Nml Nml Nml Nml Nml Nml Left Deltoid Axillary Nml Nml Nml Nml Nml Nml Left Triceps Radial Nml Nml Nml Nml Nml Nml Left ExtCarUln Radial (Post Int) Nml Nml Nml Nml Nml Nml Left FlexPolLong Median (Ant Int) Nml Nml Nml Nml Nml Nml Left 1stDorInt Ulnar Nml Nml Nml Nml Nml Nml Left Abd Poll Brev Median Nml Nml Nml Decr >12ms +1 Left FlexDigProf Ulnar Nml Nml Nml Nml Nml Nml Left FlexCarRad Median Nml Nml Nml Nml Nml Nml MTDD
== END 2024-06-28 10:25 | disposition home or self-care (01) ==
LOC: ANHNEURO 10:26
PROVIDERS: PCP Family Medicine; Visit Provider Family Medicine
DX: G56.03 Carpal tunnel syndrome, bilateral upper limbs (principal)
CPT/HCPCS: 95886; 95912

== ENCOUNTER 2024-07-11 11:08 | Outpatient (CLI) | payer MEDICARE, SELFPAY ==
--- NOTE | ~2024-07-11 | XR_ITS ---
Right Hand Technique: PA, oblique, and lateral views were obtained. Clinical History: Osteoarthritis Findings: No acute fracture or dislocation is seen. Osseous alignment is anatomic. There is moderate degenerative change of the first CMC. Soft tissues are unremarkable. 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 Reviewed, dictated and finalized at [facility]. 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
--- OUTSIDE RECORDS SUMMARY | 2024-07-11 13:01 | XMS_ITS | Clinical Summary ---
Author Organization [facility] Address [address] [place] [address] Phone Care Team Providers Care Staffing Consultant Name Role Phone Bora Rodriguez MD Primary Care Provider [phone] Allergies Active Allergy Reactions Criticality Noted Date [...] Take 250 mg by mouth daily. Active dhygeiupsot-S0-a oswellia serr (OSTEO BI-FLEX, 5-LOXIN,) 1,500-400-100 mg-unit-mg Tablet Take by mouth. 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 Gender Identity Not on file Sexual Orientation [...] Description 08/01/2024 10:15 AM CDT Office Visit [facility] Oncology and Hematology [facility] [address] [facility] [address] [place] [address] Norm Thomas MD [address] [facility] [address] [place] [address] Health Maintenance Due Date Last [...] Region Laterality Modality Breast Bilateral Other us zUma Yates MD MAMMO ORDERABLES Edited R esult - Final from Last 3 Months or Most Recently Relevant to Health Maintenance Insurance [employer] PPO MCR Care Teams Staffing Consultant Relationship Specialty Start Date End Date Bora Rodriguez MD [address] [facility] [address] [place] [address] PCP - General Family Practice 01/21/21
--- OUTSIDE RECORDS SUMMARY | 2024-07-11 13:02 | XMS_ITS | Clinical Summary ---
Author Organization [facility] Address [address] [facility] [place] [address] Care Team Providers Care Edge Finisher Name Role Phone Sumanth Parker MD Primary Care Provider [phone] Source Comments [facility],non-owned Affiliates and Associated Physician Practices is amultiple site organization consisting of ambulatory clinics and hospital sitesin [place], [place], [place] and [place]. This disclosure is being madepursuant to the Care Everywhere program and may not contain all information available regarding this patient. Last updated 18.[facility] Allergies Active Allergy Reactions Criticality Noted [...] with meals. Active vitamin D, ergocalciferol, (DRISDOL) 39709 UNIT capsule Take 50,000 Units by mouth [...] to complete this topic MENINGOCOCCAL (Group B) VACC INE SHARED DECISION-MAKING Aged Out No longer eligibl e based on patient's age to complete this topic MENINGOCOCCAL GROUPS A/C/Y/W VACCINE Aged Out No longer eligible b ased on patient's age to complete this topic Care Teams Edge Finisher Relationship Specialty Start Date End Date Sumanth Parker MD [address] [place] [address] PCP - General 12/16/10
--- OUTSIDE RECORDS SUMMARY | 2024-07-11 13:02 | XMS_ITS | Referral Summary ---
Author Organization [facility] Address [address] [place] [address] Care Team Providers Care Fire Tower Keeper Name Role Phone Bora Rodriguez MD Primary Care Provider Agustin Campos MD Unavailable [phone] Encounters Date Type Department Care Team Description 06/20/2024 11:00 AM REFORMATORY ATTENDANT Office Visit [facility] Ophthalmology [address] [place] [address], [address] [facility] [place] [phone] Latrell Morrison, OD Pigment dispersion syndrome of iris, bilateral (Primary Dx); Nuclear sclerotic cataract of both eyes 06/20/2024 10:20 AM REFORMATORY ATTENDANT Imaging Exam [facility] [address] [place] [phone] Pigment dispersion syndrome of iris, bilateral; OAG (open angle glaucoma) suspect, low risk, bilateral 06/20/2024 10:00 AM REFORMATORY ATTENDANT Imaging Exam [facility]mology [address] [place] [phone] Pigment dispersion syndrome of iris, bilateral; OAG (open angle glaucoma) suspect, low risk, bilateral 06/18/2024 Orders Only [facility]mology [address] [place] [phone] Latrell Morrison, OD OAG (open angle glaucoma) suspect, low risk, bilateral (Primary Dx); Pigment dispersion syndrome of iris, bilateral from Last 3 Months Allergies Active Allergy Reactions Criticality Noted Date Comments Celecoxib Hives,Rash High 12/18/2010 Morphine Itching,Nausea And Vomiting Low 01/22/20 21 Medications aspirin 81 mg tablet 325 mg Active atorvastatin (LIPITOR) 40 mg tablet 01/06/2018 Active Ca-D3-mag zf-iyus-ied-man g-bor 600 mg calcium- 800 unit-50 mg tablet Active ergocalciferol (VITAMIN D) 50,000 unit capsule TAKE ONE CAPSULE BY MOUTH 2 TIMES PER MONTH 4 12/08/2017 Active fenofibrate (TRICOR) 54 mg tablet Active omega 4-dpk-bqw-fish oil (FISH OIL) 100-160-1,000 mg capsule Active [...] 03/08/2018 Assessment & Plan (03/08/2018 11:26 AM REFORMATORY ATTENDANT): Hx of oc htn with ?hx of PDS. IOP acceptable today off drops. Has been acceptable for the past several visits. No changes on visual field today. Okay to monitor annually RTC x 1 year for annual exam + 24-2 VF + RNFL OCT. Sooner PRN Pigment dispersion syndrome of iris, bilateral 1 05/08/2017 Assessment & Plan (03/08/2018 11:28 AM REFORMATORY ATTENDANT): Same. Nuclear sclerotic cataract of both eyes 03/08/20 18 Assessment & Plan (03/08/2018 11:27 AM REFORMATORY ATTENDANT): Not vis sig. Monitor. Social History Tobacco [...] on file Legal Sex Female 1:35 AM REFORMATORY ATTENDANT Gender Identity Not on file Sexual Orientation Not on file Last Filed Vital Signs Vital Sign Reading Time Taken Comments Blood Pressure 120/66 03/10/2021 4:17 PM REFORMATORY ATTENDANT Pulse 92 03/10/2021 4:17 PM REFORMATORY ATTENDANT Temperature 37.1 C (98.7 F) 03/10/2021 12:30 PM REFORMATORY ATTENDANT Respiratory Rate 18 03/10/2021 4:17 PM REFORMATORY ATTENDANT Oxygen Saturation 96% 03/10/2021 4:17 PM REFORMATORY ATTENDANT Inhaled Oxygen Concentration - - Weight 68 kg (150 lb) 10/13/2022 2:57 PM CDT Height 152.4 cm (5') 10/13/2022 2:57 PM CDT Body Mass Index 29.29 10/13/2022 2:57 PM CDT Plan of Treatment Not on file Procedures Procedure Name Priority Date/Time Associated Diagnosis Comments HARPER VISUAL FIELD - OU - BOTH EYES Routine 06/20/2024 10:49 AM REFORMATORY ATTENDANT Pigment dispersion syndrome of iris, bilateral OAG (open angle glaucoma) suspect, low risk, bilateral OCT, OPTIC NERVE - OU - BOTH EYES Routine 06/20/2024 10:44 AM REFORMATORY ATTENDANT Pigment dispersion syndrome of iris, bilateral OAG (open angle glaucoma) suspect, low risk, bilateral from Last 3 Months Results * Harper Visual Field - OU - Both Eyes (06/20/2024 10:49 AM REFORMATORY ATTENDANT) Pattern Deviation OS 1.56 dB CONTINUUM Pattern Deviation OD 1.51 dB CONTINUUM Mean Deviation OS 0.26 dB CONTINUUM Mean Deviation OD 0.57 dB CONTINUUM Anatomical Region Laterality Modality Head Other Narrative 06/20/2024 1:30 PM REFORMATORY ATTENDANT Right Eye Fixation was good. Cooperation was [...] OU - Both Eyes (06/20/2024 10:44 AM REFORMATORY ATTENDANT) RNFL OS 87 micrometers CONTINUUM RNFL OD 86 micrometers CONTINUUM Anatomical Region Laterality Modality Head Other Narrative 06/20/2024 10:44 AM REFORMATORY ATTENDANT Right Eye Reliability was good. Temporal progression [...] Resul t from Last 3 Months Insurance [facility] AETNA MEDICARE Advance Directives For more information, please contact: [phone] * Full Code (Latest Code Status on File) Date Activated Date Inactivated Comments 03/10/2021 1:49 PM 03/10/2021 8:31 PM Care Teams Fire Tower Keeper Relationship Specialty Start Date End Date Bora Rodriguez MD [address] [place] [address] PCP - General Family Medicine 08/13/19 Agustin Campos MD [address] [place] [address] Consulting Physician Cardiology 02/17/21
--- OUTSIDE RECORDS SUMMARY | 2024-07-11 13:02 | XMS_ITS | Clinical Summary ---
Author Organization [facility] Address [address] [place] [address] Care Team Providers Care Physician Intensivist Name Role Phone Wilfrido García MD Primary Care Provider [phone] Allergies Active Allergy Reactions Criticality Noted Date Comments Celecoxib Hives,Rash High 12/18/2010 Morphine Itching,Nausea and Vomiting Low 01/22/20 21 Medications aspirin 81 MG chewable tablet Chew 81 mg by mouth 2 (two) times daily. Active atorvastatin 40 MG tablet 1 Active Boswellia-Glucos amine-Vit D (OSTEO HW-EOEA-PGPAHL/5 -LOXIN) Tab Active Calcium Carbonate-Vit D-Min (CALCIUM 600+D3 PLUS MINERALS) 600-800 MG-UNIT Tab Active cholestyramine 4 G packet Take 4 g by mouth daily. Active diphenoxylate-at ropine 2.5-0.025 MG tablet Take 1 tablet by mouth 4 (four) times daily as needed. Active vitamin D2, ergocalciferol, (DRISDOL) 50476 UNITS capsule Take 50,000 Units by mouth every 30 (thirty) days. Active Glucosamine 500 MG Cap Take 500 mg by mouth. Active isosorbide mononitrate ER 30 MG 24 hr tablet Take 30 mg by mouth daily. 1 Active metoprolol succinate ER 25 MG 24 hr tablet Take 25 mg by mouth daily. 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
--- OUTSIDE RECORDS SUMMARY | 2024-07-11 13:02 | XMS_ITS | Encounter Summary ---
Author Organization [facility] Address 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 Gender Identity Not on file Sexual Orientation Not on file documented as of this encounter Plan of Treatment Upcoming Encounters Date Type Department Care Team (Late st Contact Info) Description 08/01/2024 10:15 AM CDT Office Visit [facility] Oncology and Hematology - [place] [address] [facility] [address] [place] [address] Norm Thomas MD [address] [facility] [address] [place] [address] documented as of this encounter Visit Diagnoses Diagnosis Diffuse cystic mastopathy- Primary documented in this encounter Care Teams Project Financial Analyst Relationship Specialty Start Date End Date Bora Rodriguez MD [address] [facility] [address] [place] [address] PCP - General Family Practice 01/21/21 documented as of this encounter
--- OUTSIDE RECORDS SUMMARY | 2024-07-11 13:02 | XMS_ITS | Encounter Summary ---
Author Organization [facility] Address [address] [place] [address] Care Team Providers Care Nascar Driver Name Role Phone Bora Rodriguez MD Primary Care Provider [phone] Encounter Details Date Type Department Care Team (Latest Contact Info) Description 07/31/2003 Outpatient Historical HIS [facility] Ward, Csai Rothman MD NO ADDRESS ON FILE DIFFUS CYSTIC MASTOPATHY (Primary Dx) Social History Tobacco Use Types Packs/Day Years Used Date Smoking Tobacco: Never Assessed Comments Unknown Sex and Gender Information Value Date Recorded Sex Assigned at Not on file Legal Sex Female 2:57 AM JITTERBUG OPERATOR Gender Identity Not on file Sexual Orientation Not on file documented as of this encounter Plan of Treatment Upcoming Encounters Date Type Department Care Team (Late st Contact Info) Description 08/01/2024 10:15 AM CDT Office Visit [facility] Oncology and Hematology - [place] [address] [facility] [address] [place] [address] Norm Thomas MD [address] [facility] [address] [place] [address] documented as of this encounter Visit Diagnoses Diagnosis Diffuse cystic mastopathy- Primary documented in this encounter Care Teams Nascar Driver Relationship Specialty Start Date End Date Bora Rodriguez MD [address] [facility] [address] [place] [address] PCP - General Family Practice 01/21/21 documented as of this encounter
--- OUTSIDE RECORDS SUMMARY | 2024-07-11 13:02 | XMS_ITS | Clinical Summary ---
Author Organization [facility] Address [address] [place] [address] Care Team Providers Care Embroidery Patternmaker Name Role Phone Bora Rodriguez MD Primary Care Provider Agustin Campos MD Unavailable [phone] Allergies Active Allergy Reactions Criticality Noted Date Comments Celecoxib Hives,Rash High 12/18/2010 Morphine Itching,Nausea And Vomiting Low 01/22/20 21 Medications aspirin 81 mg tablet 325 mg Active atorvastatin (LIPITOR) 40 mg tablet 01/06/2018 Active Ca-D3-mag nk-rvpj-jov-man g-bor 600 mg calcium- 800 unit-50 mg tablet Active ergocalciferol (VITAMIN D) 50,000 unit capsule TAKE ONE CAPSULE BY MOUTH 2 TIMES PER MONTH 4 12/08/2017 Active fenofibrate (TRICOR) 54 mg tablet Active omega 9-zbp-jgt-fish oil (FISH OIL) 100-160-1,000 mg capsule Active [...] 03/08/2018 Assessment & Plan (03/08/2018 11:26 AM SALES ASSOCIATE CASHIER): Hx of oc htn with ?hx of PDS. IOP acceptable today off drops. Has been acceptable for the past several visits. No changes on visual field today. Okay to monitor annually RTC x 1 year for annual exam + 24-2 VF + RNFL OCT. Sooner PRN Pigment dispersion syndrome of iris, bilateral 1 05/08/2017 Assessment & Plan (03/08/2018 11:28 AM SALES ASSOCIATE CASHIER): Same. Nuclear sclerotic cataract of both eyes 03/08/20 18 Assessment & Plan (03/08/2018 11:27 AM SALES ASSOCIATE CASHIER): Not vis sig. Monitor. Encounters Date Type Department Care Team Description 06/20/2024 11:00 AM SALES ASSOCIATE CASHIER Office Visit [facility] [address] [place] [address], [address] [place] [address] Latrell Morrison, OD Pigment dispersion syndrome of iris, bilateral (Primary Dx); Nuclear sclerotic cataract of both eyes 06/20/2024 10:20 AM SALES ASSOCIATE CASHIER Imaging Exam [facility] [address] [place] [phone] Pigment dispersion syndrome of iris, bilateral; OAG (open angle glaucoma) suspect, low risk, bilateral 06/20/2024 10:00 AM SALES ASSOCIATE CASHIER Imaging Exam [facility] [address] [place] [phone] Pigment dispersion syndrome of iris, bilateral; OAG (open angle glaucoma) suspect, low risk, bilateral 06/18/2024 Orders Only [facility] [address] [place] [phone] Latrell Morrison, OD OAG (open angle glaucoma) [...] on file Legal Sex Female 1:35 AM SALES ASSOCIATE CASHIER Gender Identity Not on file Sexual Orientation Not on file Obstetrics History Last Filed Vital Signs Vital Sign Reading Time Taken Comments Blood Pressure 120/66 03/10/2021 4:17 PM SALES ASSOCIATE CASHIER Pulse 92 03/10/2021 4:17 PM SALES ASSOCIATE CASHIER Temperature 37.1 C (98.7 F) 03/10/2021 12:30 PM SALES ASSOCIATE CASHIER Respiratory Rate 18 03/10/2021 4:17 PM SALES ASSOCIATE CASHIER Oxygen Saturation 96% 03/10/2021 4:17 PM SALES ASSOCIATE CASHIER Inhaled Oxygen Concentration - - Weight 68 [...] - BOTH EYES Routine 06/20/2024 10:49 AM SALES ASSOCIATE CASHIER Pigment dispersion syndrome of iris, bilateral OAG (open angle glaucoma) suspect, low risk, bilateral OCT, OPTIC NERVE - OU - BOTH EYES Routine 06/20/2024 10:44 AM SALES ASSOCIATE CASHIER Pigment dispersion syndrome of iris, bilateral OAG (open angle glaucoma) suspect, low risk, bilateral from Last 3 Months Results * Harper Visual Field - OU - Both Eyes (06/20/2024 10:49 AM SALES ASSOCIATE CASHIER) Pattern Deviation OS 1.56 dB CONTINUUM Pattern Deviation OD 1.51 dB CONTINUUM Mean Deviation OS 0.26 dB CONTINUUM Mean Deviation OD 0.57 dB CONTINUUM Anatomical Region Laterality Modality Head Other Narrative 06/20/2024 1:30 PM SALES ASSOCIATE CASHIER Right Eye Fixation was good. Cooperation was [...] OU - Both Eyes (06/20/2024 10:44 AM SALES ASSOCIATE CASHIER) RNFL OS 87 micrometers CONTINUUM RNFL OD 86 micrometers CONTINUUM Anatomical Region Laterality Modality Head Other Narrative 06/20/2024 10:44 AM SALES ASSOCIATE CASHIER Right Eye Reliability was good. Temporal progression [...] from Last 3 Months Insurance AET[employer] MEDICARE [facility] MEDICARE Address: [facility] [id number] [place] [id number] [facility] HMO/PPO Address: [facility] [id number] [place] [phone] [facility] HMO AET MEDICARE [facility] MEDICARE Address: [facility] [id number] [place] [phone] Advance Directives For more information, please contact: [phone] * Full Code (Latest Code Status on File) Date Activated Date Inactivated Comments 03/10/2021 1:49 PM 03/10/2021 8:31 PM Care Teams Embroidery Patternmaker Relationship Specialty Start Date End Date Bora Rodriguez MD [address] [place] [address] PCP - General Family Medicine 08/13/19 Agustin Campos MD [address] [place] [address] [place] [address] Consulting Physician Cardiology 02/17/21
--- OUTSIDE RECORDS SUMMARY | 2024-07-11 13:02 | XMS_ITS | Encounter Summary ---
Author Organization [facility] Address [address] [place] [address] Care Team Providers Care Riprap Placing Supervisor Name Role Phone Bora Rodriguez MD Primary Care Provider [phone] Encounter Details Date Type Department Care Team (Latest Contact Info) Description 07/28/2004 Outpatient Historical HIS [facility] Ward, Casi Rothman MD NO ADDRESS ON FILE UNSP ABNORMAL MAMMOGRAM (Primary Dx) Social History Tobacco Use Types Packs/Day Years Used Date Smoking Tobacco: Never Assessed Comments Unknown Sex and Gender Information Value Date Recorded Sex Assigned at Not on file Legal Sex Female 2:57 AM ROGUER Gender Identity Not on file Sexual Orientation Not on file documented as of this encounter Plan of Treatment Upcoming Encounters Date Type Department Care Team (Late st Contact Info) Description 08/01/2024 10:15 AM CDT Office Visit [facility] Oncology and Hematology - [place] [address] [facility] [address] [place] [address] Norm Thomas MD [address] [facility] [address] [place] [address] documented as of this encounter Visit Diagnoses Diagnosis Abnormal mammogram, unspecified- Primary documented in this encounter Care Teams Riprap Placing Supervisor Relationship Specialty Start Date End Date Bora Rodriguez MD [address] [address] [place] [address] PCP - General Family Practice 01/21/21 documented as of this encounter
--- OUTSIDE RECORDS SUMMARY | 2024-07-11 13:02 | XMS_ITS | Encounter Summary ---
Author Organization [facility] Address 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 Gender Identity Not on file Sexual Orientation Not on file documented as of this encounter Plan of Treatment Upcoming Encounters Date Type Department Care Team (Late st Contact Info) Description 08/01/2024 10:15 AM CDT Office Visit [facility] Oncology and Hematology - [place] [address] [facility] [address] [place] [address] Norm Thomas MD [address] [facility] [address] [place] [address] documented as of this encounter Visit Diagnoses Diagnosis Diffuse cystic mastopathy- Primary documented in this encounter Care Teams Ios Developer Relationship Specialty Start Date End Date Bora Rodriguez MD [address] [facility] [address] [place] [address] PCP - General Family Practice 01/21/21 documented as of this encounter
== END 2024-07-11 11:09 | disposition home or self-care (01) ==
PROVIDERS: PCP Family Medicine; Visit Provider Plastic Surgery
DX: M18.11 Unilateral primary osteoarthritis of first carpometacarpal joint, right hand (principal)
CPT/HCPCS: 73130

== ENCOUNTER 2024-10-08 11:20 | Outpatient (CLI) | payer MEDICARE, SELFPAY ==
--- NOTE | 2024-10-08 11:47 | ECG_ITS ---
Test Date: 2024-10-08 11:51:51 Measurements Intervals [place] Rate: 85 P: 54 SC: 153 QRS: 46 QRSD: 97 T: 34 QT: 382 QTc: 456 Interpretive Statements SINUS RHYTHM NORMAL ECG No previous ECG available for comparison Electronically Signed On 10-08-2024 13:02:21 CDT by Cedrick Coley D.O.
[2024-10-08 12:02] LABS: Anion Gap 5 mmol/L (4-12); Blood Urea Nitrogen 11 mg/dL (7-17); Calcium 9.6 mg/dL (8.4-10.2); Carbon Dioxide 30 mmol/L (22-30); Chloride 105 mmol/L (98-107); Estimated Glomerular Filt Rate > 60; Glucose 121 mg/dL (65-110); Potassium 3.7 mmol/L (3.4-5.0); Sodium 140 mmol/L (137-145)
--- OUTSIDE RECORDS SUMMARY | 2024-10-08 12:37 | XMS_ITS | Encounter Summary ---
Author Organization [facility] Address [address] [place] [address] Care Team Providers Care Teaching Artist Name Role Phone Bora Rodriguez MD Primary Care Provider [phone] Encounter Details Date Type Department Care Team (Latest Contact Info) Description 08/31/2005 Outpatient Historical HIS [facility] Ward, Casi Rothman MD NO ADDRESS ON FILE Diffuse Cystic Mastopathy (Primary Dx) Social History Tobacco Use Types Packs/Day Years Used Date Smoking Tobacco: Never Assessed Comments Unknown Sex and Gender Information Value Date Recorded Sex Assigned at Not on file Legal Sex Female 2:57 AM TRAIN RESERVATION CLERK Gender Identity Not on file Sexual Orientation Not on file documented as of this encounter Plan of Treatment Upcoming Encounters Date Type Department Care Team (Late st Contact Info) Description 08/01/2025 10:00 AM CDT Office Visit [facility] Oncology and Hematology - [place] [address] [place] [address] [address] [place] [address] [place] [address] [place] [address] [address] [place] [address] documented as of this encounter Visit Diagnoses Diagnosis Diffuse cystic mastopathy- Primary documented in this encounter Care Teams Teaching Artist Relationship Specialty Start Date End Date Bora Rodriguez MD [address] [facility] [address] [place] [address] PCP - General Family Practice 01/21/21 documented as of this encounter
--- OUTSIDE RECORDS SUMMARY | 2024-10-08 12:37 | XMS_ITS | Referral Summary ---
Author Organization [facility] Address [address] [place] [address] Care Team Providers Care Environmental Compliance Technician Name Role Phone Bora Rodriguez MD Primary Care Provider Agustin Campos MD Unavailable [phone] Allergies Active Allergy Reactions Criticality Noted Date Comments Celecoxib Hives,Rash High 12/18/2010 Morphine Itching,Nausea And Vomiting Low 01/22/20 21 Medications aspirin 81 mg tablet 325 mg Active atorvastatin (LIPITOR) 40 mg tablet 01/06/2018 Active Ca-D3-mag in-iuis-kev-man g-bor 600 mg calcium- 800 unit-50 mg tablet Active ergocalciferol (VITAMIN D) 50,000 unit capsule TAKE ONE CAPSULE BY MOUTH 2 TIMES PER MONTH 4 12/08/2017 Active fenofibrate (TRICOR) 54 mg tablet Active omega 5-ntw-dpf-fish oil (FISH OIL) 100-160-1,000 mg capsule Active [...] 03/08/2018 Assessment & Plan (03/08/2018 11:26 AM PRIMER SUPERVISOR): Hx of oc htn with ?hx of PDS. IOP acceptable today off drops. Has been acceptable for the past several visits. No changes on visual field today. Okay to monitor annually RTC x 1 year for annual exam + 24-2 VF + RNFL OCT. Sooner PRN Pigment dispersion syndrome of iris, bilateral 1 05/08/2017 Assessment & Plan (03/08/2018 11:28 AM PRIMER SUPERVISOR): Same. Nuclear sclerotic cataract of both eyes 03/08/20 18 Assessment & Plan (03/08/2018 11:27 AM PRIMER SUPERVISOR): Not vis sig. Monitor. Social History Tobacco Use Types Packs/Day Years Used Date Smoking Tobacco: Former Cigarettes Q uit: 2008 Smokeless Tobacco: Never Tobacco Cessation:Counseling Given: Not Answered AUDIT-C Answer Date Recorded Q1: How often do you have a drink containing alc ohol? Never 03/10/2021 Average Number of Drinks Not on file 021 Frequency of Binge Drinking Not on file 02/23 Comments Unknown Sex and Gender Information Value Date Recorded Sex Assigned at Not on file Legal Sex Female 1:35 AM PRIMER SUPERVISOR Gender Identity Not on file Sexual Orientation Not on file Last Filed Vital Signs Vital Sign Reading Time Taken Comments Blood Pressure 120/66 03/10/2021 4:17 PM PRIMER SUPERVISOR Pulse 92 03/10/2021 4:17 PM PRIMER SUPERVISOR Temperature 37.1 C (98.7 F) 03/10/2021 12:30 PM PRIMER SUPERVISOR Respiratory Rate 18 03/10/2021 4:17 PM PRIMER SUPERVISOR Oxygen Saturation 96% 03/10/2021 4:17 PM PRIMER SUPERVISOR Inhaled Oxygen Concentration - - Weight 68 kg (150 lb) 10/13/2022 2:57 PM CDT Height 152.4 cm (5') 10/13/2022 2:57 PM CDT Body Mass Index 29.29 10/13/2022 2:57 PM CDT Plan of Treatment Not on file Insurance [facility]IC[facility] A[facility] MEDIC[facility] Advance Directives For more information, please contact: [phone] * Full Code (Latest Code Status on File) Date Activated Date Inactivated Comments 03/10/2021 1:49 PM 03/10/2021 8:31 PM Care Teams Environmental Compliance Technician Relationship Specialty Start Date End Date Bora Rodriguez MD [address] [facility] [address] [place] [address] PCP - General Family Medicine 08/13/19 Agustin Campos MD [address] [place] [address] Consulting Physician Cardiology 02/17/21
--- OUTSIDE RECORDS SUMMARY | 2024-10-08 12:37 | XMS_ITS | Clinical Summary ---
Author Organization [facility] Address [address] [place] [address] Care Team Providers Care Mushroom Spawn Maker Name Role Phone Wilfrido García MD Primary Care Provider Allergies Active Allergy Reactions Criticality Noted Date Comments Celecoxib Hives,Rash High 12/18/2010 Morphine Itching,Nausea and Vomiting Low 01/22/20 21 Medications aspirin 81 MG chewable tablet Chew 81 mg by mouth 2 (two) times daily. Active atorvastatin 40 MG tablet 1 Active [place]wellia-Glucos amine-Vit D (OSTEO FI-RBOY-GQAPNU/5 -LOXIN) Tab Active Calcium Carbonate-Vit D-Min (CALCIUM 600+D3 PLUS MINERALS) 600-800 MG-UNIT Tab Active cholestyramine 4 G packet Take 4 g by mouth daily. Active diphenoxylate-at ropine 2.5-0.025 MG tablet Take 1 tablet by mouth 4 (four) times daily as needed. Active vitamin D2, ergocalciferol, (DRISDOL) 16924 UNITS capsule Take 50,000 Units by mouth every 30 (thirty) days. Active Glucosamine 500 MG Cap Take 500 mg by mouth. Active isosorbide mononitrate ER 30 MG 24 hr tablet Take 30 mg by mouth daily. 1 Active metoprolol succinate ER 25 MG 24 hr tablet Take 25 mg by mouth daily. Active Randolph-3 Fatty Acids (RA FISH OIL) 1000 MG [...] Active Problems No known active problems Immunizations Immunization Administration Dates Next Due Influenza Adult (Generic) [...] on file Legal Sex Female 3:02 PM MARBLE CUTTER OPERATOR Gender Identity Not on file Sexual [...] 08/11/2021 8:43 AM CDT Plan of Treatment Upcoming Encounters Date Type Department Care Team (Late st Contact Info) Description 10/09/2024 11:10 AM CDT Office Visit [facility] Family Medicine - [place] [address] [facility] [address] [place] [phone] Zenaida Talbert MD [address] [place] [address] Health Maintenance Due Date Last Done Comments Colorectal Cancer Screening Colonoscopy (10 Years) 1956 Hepatitis C 1974 DTaP, Tdap and Td Vaccines ( 1 - Tdap) 10/19/1975 Mammogram Screening 1996 Pneumococcal Vaccine: 50+ Years (1 of 1 - PCV) 2006 Zoster Vaccines (1 of 2) 2006 Annual Medicare Wellness Visit 2021 Dexa Scan (General) 2021 COVID-19 Vaccine (4 - 2023-2 5 season) 2023 03/05/2021, 08/03/2020, 07/08/2020 RSV Immunization or 60+ Years (1 - [...] complete this topic Insurance AET[employer] Care Teams Mushroom Spawn Maker Relationship Specialty Start [place]ido [place]ía [place] [address] [place] [address] PCP - General INTERNAL MEDICINE 11/14/23 10/08/24
--- OUTSIDE RECORDS SUMMARY | 2024-10-08 12:37 | XMS_ITS | Encounter Summary ---
Author Organization [facility] Address [address] [place] [address] Care Team Providers Care Dining Room Cashier Name Role Phone Bora Rodriguez MD Primary Care Provider [phone] Encounter Details Date Type Department Care Team (Latest Contact Info) Description 09/14/2006 Outpatient Historical HIS [facility] Ward, Casi Rothman MD NO ADDRESS ON FILE Diffuse Cystic Mastopathy (Primary Dx) Social History Tobacco Use Types Packs/Day Years Used Date Smoking Tobacco: Never Assessed Comments Unknown Sex and Gender Information Value Date Recorded Sex Assigned at Not on file Legal Sex Female 2:57 AM SYSTEMS ADMIN Gender Identity Not on file Sexual Orientation Not on file documented as of this encounter Plan of Treatment Upcoming Encounters Date Type Department Care Team (Late st Contact Info) Description 08/01/2025 10:00 AM CDT Office Visit [facility] Oncology and Hematology - [place] [address] [place] [address] [address] [place] [address] [place] [address] [place] [address] [address] [place] [address] documented as of this encounter Visit Diagnoses Diagnosis Diffuse cystic mastopathy- Primary documented in this encounter Care Teams Dining Room Cashier Relationship Specialty Start Date End Date Bora Rodriguez MD [address] [facility] [address] [place] [address] PCP - General Family Practice 01/21/21 documented as of this encounter
--- OUTSIDE RECORDS SUMMARY | 2024-10-08 12:37 | XMS_ITS | Clinical Summary ---
Author Organization [facility] Address [address] [place] [address] Care Team Providers Care Instrument Maintenance Supervisor Name Role Phone Sumanth Parker MD Primary Care Provider [phone] Source Comments [facility],non-owned Affiliates and Associated Physician Practices is amultiple site organization consisting of ambulatory clinics and hospital sitesin [place], [place], [place] and [place]. This disclosure is being madepursuant to the Care Everywhere program and may not contain all information available regarding this patient. Last updated 18.[facility] Allergies Active Allergy Reactions Criticality Noted Date Comments Celecoxib Rash High 12/18/2010 Medications * Be aware that medications may not be up to date on this document. Alwaysverify current medications with the patient. dipyridamole (PERSANTINE) 50 MG tablet Take 50 mg by mouth 4 times daily. Active metoprolol succinate XL 24hr (TOPROL XL) 25 MG tablet Take 25 mg by mouth once daily. Active ezetimibe-simvas tatin (VYTORIN) 10-40 MG tablet Take 1 Tab by mouth at bedtime. Active cholestyramine (QUESTRAN) 4 GM powder Take 4 g by mouth once daily. Active diphenoxylate-at ropine (LOMOTIL) 2.5-0.025 MG tablet Take 1 Tab [...] with meals. Active vitamin D, ergocalciferol, (DRISDOL) 29317 UNIT capsule Take 50,000 Units by mouth [...] at Not on file Legal Sex Female 12:02 PM MUSIC AGENT Gender Identity Not on file Sexual Orientation [...] VACCINE (1 of 2) 2006 COVID-19 VACCINE (2023-2 5 season) 2023 DEPRESSION SCREENING 04/25/2024 MEDICARE AWV CALENDAR YEAR 2024 INFLUENZA VACCINE (Season Ended) 2024 Respiratory Syncytial Virus (RSV) Vaccine Pt: [...] age to complete this topic Insurance AETNA AETNA MEDICARE ADV Care Teams Instrument Maintenance Supervisor Relationship Specialty Start Date End Date Sumanth Parker MD [address] [place] [address] PCP - General 12/16/10
--- OUTSIDE RECORDS SUMMARY | 2024-10-08 12:37 | XMS_ITS | Clinical Summary ---
Author Organization [facility] Address [address] [place] [address] Care Team Providers Care Patient Coordinator Name Role Phone Bora Rodriguez MD Primary Care Provider Agustin Campos MD Unavailable [phone] Allergies Active Allergy Reactions Criticality Noted Date Comments Celecoxib Hives,Rash High 12/18/2010 Morphine Itching,Nausea And Vomiting Low 01/22/20 21 Medications aspirin 81 mg tablet 325 mg Active atorvastatin (LIPITOR) 40 mg tablet 01/06/2018 Active Ca-D3-mag de-bchm-xzu-man g-bor 600 mg calcium- 800 unit-50 mg tablet Active ergocalciferol (VITAMIN D) 50,000 unit capsule TAKE ONE CAPSULE BY MOUTH 2 TIMES PER MONTH 4 12/08/2017 Active fenofibrate (TRICOR) 54 mg tablet Active omega 5-bbq-mlw-fish oil (FISH OIL) 100-160-1,000 mg capsule Active [...] 03/08/2018 Assessment & Plan (03/08/2018 11:26 AM ORTHOPAEDIC SURGEON): Hx of oc htn with ?hx of PDS. IOP acceptable today off drops. Has been acceptable for the past several visits. No changes on visual field today. Okay to monitor annually RTC x 1 year for annual exam + 24-2 VF + RNFL OCT. Sooner PRN Pigment dispersion syndrome of iris, bilateral 1 05/08/2017 Assessment & Plan (03/08/2018 11:28 AM ORTHOPAEDIC SURGEON): Same. Nuclear sclerotic cataract of both eyes 03/08/20 18 Assessment & Plan (03/08/2018 11:27 AM ORTHOPAEDIC SURGEON): Not vis sig. Monitor. Surgical History Surgery Date Site/Laterality Comments CHOLECYSTECTOMY [...] on file Legal Sex Female 1:35 AM ORTHOPAEDIC SURGEON Gender Identity Not on file Sexual Orientation Not on file Obstetrics History Last Filed Vital Signs Vital Sign Reading Time Taken Comments Blood Pressure 120/66 03/10/2021 4:17 PM ORTHOPAEDIC SURGEON Pulse 92 03/10/2021 4:17 PM ORTHOPAEDIC SURGEON Temperature 37.1 C (98.7 F) 03/10/2021 12:30 PM ORTHOPAEDIC SURGEON Respiratory Rate 18 03/10/2021 4:17 PM ORTHOPAEDIC SURGEON Oxygen Saturation 96% 03/10/2021 4:17 PM ORTHOPAEDIC SURGEON Inhaled Oxygen Concentration - - Weight 68 [...] Risk Assessment 03/10/2022 03/10/2021 Covid-19 Vaccine ( - season) 12/25/202302/2021, 07/08/2020 Influenza Vaccine (Season Ended) 2024 03/30/20, 02/13/[address] [facility] HMO [facility] HMO AET MEDICARE Advance Directives For more information, please contact: [phone] * Full Code (Latest Code Status on File) Date Activated Date Inactivated Comments 03/10/2021 1:49 PM 03/10/2021 8:31 PM Care Teams Patient Coordinator Relationship Specialty Start Date End Date Bora Rodriguez MD [address] [place] [address] PCP - General Family Medicine 08/13/19 Agustin Campos MD [address] [place] [address] Consulting Physician Cardiology 02/17/21
--- OUTSIDE RECORDS SUMMARY | 2024-10-08 12:37 | XMS_ITS | Clinical Summary ---
Author Organization [facility] Address [address] [place] [address] Phone Care Team Providers Care Foot Caster Name Role Phone Bora Rodriguez MD Primary Care Provider [phone] Allergies Active Allergy Reactions Criticality Noted Date [...] Take 250 mg by mouth daily. Active vpwdccnxvdw-A8-e oswellia serr (OSTEO BI-FLEX, 5-LOXIN,) 1,500-400-100 mg-unit-mg Tablet Take by mouth. Active atorvastatin (LIPITOR) 40 mg tablet 01/02/2021 Active Ca-D3-mag qa-ygmn-ufd-ish -bor 600 mg calcium- 20 mcg-50 mg [...] Encounters Date Type Department Care Team Description 09/12/2024 External Device Data STL ABSTRACTION Provider, Abstract 09/11/2024 External Device Data STL ABSTRACTION Provider, Abstract 08/01/2024 10:15 AM CDT Office Visit [facility] Oncology and [facility] [address] [place] [address] Norm Thomas MD Erythrocytosis (Primary Dx) 07/31/2024 Orders Only [facility] On[facility] and [facility] [address] [place] [address] Norm Thomas MD 07/11/2024 External Device Data STL ABSTRACTION Provider, Abstract [...] on file Legal Sex Female 2:57 AM 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 CARRIER Gender Identity Not on file Sexual Orientation Not on file Occupation Industry Job Start Date Job End Date Not on file Not on file Not on file Not on file Last Filed Vital Signs Vital Sign Reading Time Taken Comments Blood Pressure 125/80 08/01/2024 9:59 AM CDT Pulse 73 08/01/2024 9:59 AM CDT Temperature 35.9 C (96.7 F) 08/01/2024 9:59 AM CDT Respiratory Rate 15 08/01/2024 9:59 AM CDT Oxygen Saturation 96% 08/01/2024 9:59 AM CDT Inhaled Oxygen Concentration - - Weight 74.4 kg (164 lb) 08/01/2024 9:59 AM CDT Height 152.4 cm (5') 08/03/2021 2:28 PM CDT Body Mass Index 32.03 08/03/2021 2:28 PM CDT Plan of Treatment Upcoming Encounters Date Type Department Care Team (Late st Contact Info) Description 08/01/2025 10:00 AM CDT Office Visit [facility] Oncology and Hematology - [place] [address] [place] [address] [facility] [address] [place] [address] Norm Thomas MD [address] [facility] [address] [place] [address] Health Maintenance Due Date Last [...] Procedure Name Priority Date/Time Associated Diagnosis Comments CBC MIXED CELL DIFFERENTIAL Routine 07/27/2024 10:33 AM CDT MAMMO BILAT DIAGNOSTIC Routine 01/08/2014 from Last 3 Months or Most Recently Relevant to Health Maintenance Results * CBC MIXED CELL DIFFERENTIAL (07/27/2024 10:33 AM CDT) Blood us Norm Thomas MD HEMATOLOGY ORDERABLES Final Res ult * MAMMO BILAT DIAGNOSTIC (01/08/2014) Anatomical Region Laterality Modality Breast Bilateral Other us Uzma Yates MD MAMMO ORDERABLES Edited R esult - Final from Last 3 Months or Most Recently Relevant to Health Maintenance Insurance TNA PPO MCR Care Teams Foot Caster Relationship Specialty Start Date End Date Bora Rodriguez MD [address] [facility] [address] [facility] [address] [place] [address] PCP - General Family Practice 01/21/21
--- OUTSIDE RECORDS SUMMARY | 2024-10-08 12:37 | XMS_ITS | Encounter Summary ---
Author Organization [facility] Address [address] [place] [address] Care Team Providers Care Music Composition Teacher Name Role Phone Bora Rodriguez MD Primary Care Provider [phone] Encounter Details Date Type Department Care Team (Latest Contact Info) Description 07/28/2004 Outpatient Historical HIS [facility] Ward, Casi Rothman MD NO ADDRESS ON FILE UNSP ABNORMAL MAMMOGRAM (Primary Dx) Social History Tobacco Use Types Packs/Day Years Used Date Smoking Tobacco: Never Assessed Comments Unknown Sex and Gender Information Value Date Recorded Sex Assigned at Not on file Legal Sex Female 2:57 AM 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 THROWER Gender Identity Not on file Sexual Orientation Not on file documented as of this encounter Plan of Treatment Upcoming Encounters Date Type Department Care Team (Late st Contact Info) Description 08/01/2025 10:00 AM CDT Office Visit [facility] Oncology and Hematology - [place] [address] [facility] [address] [place] [address] Norm Thomas MD [address] [facility] [address] [place] [address] documented as of this encounter Visit Diagnoses Diagnosis Abnormal mammogram, unspecified- Primary documented in this encounter Care Teams Music Composition Teacher Relationship Specialty Start Date End Date Bora Rodriguez MD [address] [facility] [address] [place] [address] PCP - General Family Practice 01/21/21 documented as of this encounter
--- OUTSIDE RECORDS SUMMARY | 2024-10-08 12:38 | XMS_ITS | Encounter Summary ---
Author Organization [facility] Address 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 Gender Identity Not on file Sexual Orientation Not on file documented as of this encounter Plan of Treatment Upcoming Encounters Date Type Department Care Team (Late st Contact Info) Description 08/01/2025 10:00 AM CDT Office Visit [facility] Oncology and Hematology - [place] [address] [place] [address] [address] [place] [address] [place] [address] [place] [address] [address] [place] [address] documented as of this encounter Visit Diagnoses Diagnosis Diffuse cystic mastopathy- Primary documented in this encounter Care Teams Fruit Grower Relationship Specialty Start Date End Date Bora Rodriguez MD [address] [facility] [address] [place] [address] PCP - General Family Practice 01/21/21 documented as of this encounter
== END 2024-10-08 11:21 | disposition home or self-care (01) ==
PROVIDERS: PCP Family Medicine; Visit Provider Anesthesiology
DX: E78.2 Mixed hyperlipidemia (principal); T50.2X5A Adverse effect of carbonic-anhydrase inhibitors, benzothiadiazides and other diuretics, initial encounter; I10 Essential (primary) hypertension; Z86.79 Personal history of other diseases of the circulatory system
CPT/HCPCS: 36415; 80048; 93005

== ENCOUNTER 2024-10-11 05:44 | Day surgery (SDC) | payer MEDICARE, SELFPAY ==
[2024-07-19 09:14] VITALS: BMI 32.4
--- OUTSIDE RECORDS SUMMARY | 2024-10-11 06:00 | XMS_ITS | Encounter Summary ---
Author Organization [facility] Address [address] [place] [address] Care Team Providers Care English And Reading Instructor Name Role Phone Bora Rodriguez MD Primary Care Provider [phone] Encounter Details Date Type Department Care Team (Latest Contact Info) Description 08/31/[address] 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 Gender Identity Not on file Sexual Orientation Not on file documented as of this encounter Plan of Treatment Upcoming Encounters Date Type Department Care Team (Late st Contact Info) Description 08/01/2025 10:00 AM CDT Office Visit [facility] Oncology and Hematology - [place] [address] [place] [address] [address] [place] [address] [place] [address] [place] [address] [address] [place] [address] documented as of this encounter Visit Diagnoses Diagnosis Diffuse cystic mastopathy- Primary documented in this encounter Care Teams English And Reading Instructor Relationship Specialty Start Date End Date Bora Rodriguez MD [address] [facility] [address] [place] [address] PCP - General Family Practice 01/21/21 documented as of this encounter
--- OUTSIDE RECORDS SUMMARY | 2024-10-11 06:00 | XMS_ITS | Encounter Summary ---
Author Organization [facility] Address [address] [place] [address] Care Team Providers Care Digital Recruiter Name Role Phone Bora Rodriguez MD Primary Care Provider [phone] Encounter Details Date Type Department Care Team (Latest Contact Info) Description 07/28/2004 Outpatient Historical HIS [facility] Ward, Casi Rothman MD NO ADDRESS ON FILE UNSP ABNORMAL MAMMOGRAM (Primary Dx) Social History Tobacco Use Types Packs/Day Years Used Date Smoking Tobacco: Never Assessed Comments Unknown Sex and Gender Information Value Date Recorded Sex Assigned at Not on file Legal Sex Female 2:57 AM COVERAGE SPECIALIST Gender Identity Not on file Sexual Orientation Not on file documented as of this encounter Plan of Treatment Upcoming Encounters Date Type Department Care Team (Late st Contact Info) Description 08/01/2025 10:00 AM CDT Office Visit [facility] Oncology and Hematology - [place] [address] [facility] [address] [place] [address] Norm Thomas MD [address] [facility] [address] [place] [address] documented as of this encounter Visit Diagnoses Diagnosis Abnormal mammogram, unspecified- Primary documented in this encounter Care Teams Digital Recruiter Relationship Specialty Start Date End Date Bora Rodriguez MD [address] [facility] [address] [place] [address] PCP - General Family Practice 01/21/21 documented as of this encounter
--- OUTSIDE RECORDS SUMMARY | 2024-10-11 06:00 | XMS_ITS | Clinical Summary ---
Author Organization [facility] Address [address] [facility] [place] [address] Care Team Providers Care Broadcast Journalist Name Role Phone Sumanth Parker MD Primary Care Provider [phone] Source Comments [facility],non-owned Affiliates and Associated Physician Practices is amultiple site organization consisting of ambulatory clinics and hospital sitesin [place], [place], [place] and [place]. This disclosure is being madepursuant to the Care Everywhere program and may not contain all information available regarding this patient. Last updated 18.[facility] Allergies Active Allergy Reactions Criticality Noted [...] with meals. 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
--- OUTSIDE RECORDS SUMMARY | 2024-10-11 06:00 | XMS_ITS | Encounter Summary ---
Author Organization [facility] Address 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 Gender Identity Not on file Sexual Orientation Not on file documented as of this encounter Plan of Treatment Upcoming Encounters Date Type Department Care Team (Late st Contact Info) Description 08/01/2025 10:00 AM CDT Office Visit [facility] Oncology and Hematology - [place] [address] [place] [address] [address] [place] [address] [place] [address] [place] [address] [address] [place] [address] documented as of this encounter Visit Diagnoses Diagnosis Diffuse cystic mastopathy- Primary documented in this encounter Care Teams Warehouse Distribution Specialist Relationship Specialty Start Date End Date Bora Rodriguez MD [address] [facility] [address] [place] [address] PCP - General Family Practice 01/21/21 documented as of this encounter
--- OUTSIDE RECORDS SUMMARY | 2024-10-11 06:00 | XMS_ITS | Referral Summary ---
Author Organization [facility] Address [address] [place] [address] Care Team Providers Care Foam Gun Operator Name Role Phone Bora Rodriguez MD Primary Care Provider Agustin Campos MD Unavailable [phone] Allergies Active Allergy Reactions Criticality Noted Date Comments Celecoxib Hives,Rash High 12/18/2010 Morphine Itching,Nausea And Vomiting Low 01/22/20 21 Medications aspirin 81 mg tablet 325 mg Active atorvastatin (LIPITOR) 40 mg tablet 01/06/2018 Active Ca-D3-mag fn-dvre-yww-man g-bor 600 mg calcium- 800 unit-50 mg tablet Active ergocalciferol (VITAMIN D) 50,000 unit capsule TAKE ONE CAPSULE BY MOUTH 2 TIMES PER MONTH 4 12/08/2017 Active fenofibrate (TRICOR) 54 mg tablet Active omega 9-uzq-lmw-fish oil (FISH OIL) 100-160-1,000 mg capsule Active [...] 03/08/2018 Assessment & Plan (03/08/2018 11:26 AM NON LICENSED NUCLEAR EQUIPMENT OPERATOR): Hx of oc htn with ?hx of PDS. IOP acceptable today off drops. Has been acceptable for the past several visits. No changes on visual field today. Okay to monitor annually RTC x 1 year for annual exam + 24-2 VF + RNFL OCT. Sooner PRN Pigment dispersion syndrome of iris, bilateral 1 05/08/2017 Assessment & Plan (03/08/2018 11:28 AM NON LICENSED NUCLEAR EQUIPMENT OPERATOR): Same. Nuclear sclerotic cataract of both eyes 03/08/20 18 Assessment & Plan (03/08/2018 11:27 AM NON LICENSED NUCLEAR EQUIPMENT OPERATOR): Not vis sig. Monitor. Social History Tobacco [...] on file Legal Sex Female 1:35 AM NON LICENSED NUCLEAR EQUIPMENT OPERATOR Gender Identity Not on file Sexual Orientation Not on file Last Filed Vital Signs Vital Sign Reading Time Taken Comments Blood Pressure 120/66 03/10/2021 4:17 PM NON LICENSED NUCLEAR EQUIPMENT OPERATOR Pulse 92 03/10/2021 4:17 PM NON LICENSED NUCLEAR EQUIPMENT OPERATOR Temperature 37.1 C (98.7 F) 03/10/2021 12:30 PM NON LICENSED NUCLEAR EQUIPMENT OPERATOR Respiratory Rate 18 03/10/2021 4:17 PM NON LICENSED NUCLEAR EQUIPMENT OPERATOR Oxygen Saturation 96% 03/10/2021 4:17 PM NON LICENSED NUCLEAR EQUIPMENT OPERATOR Inhaled Oxygen Concentration - - Weight 68 kg (150 lb) 10/13/2022 2:57 PM CDT Height 152.4 cm (5') 10/13/2022 2:57 PM CDT Body Mass Index 29.29 10/13/2022 2:57 PM CDT Plan of Treatment Not on file Insurance [facility] MEDIC[facility] A[facility] MEDIC[facility] Advance Directives For more information, please contact: [phone] * Full Code (Latest Code Status on File) Date Activated Date Inactivated Comments 03/10/2021 1:49 PM 03/10/2021 8:31 PM Care Teams Foam Gun Operator Relationship Specialty Start Date End Date Bora Rodriguez MD [address] [facility] [address] [place] [address] PCP - General Family Medicine 08/13/19 Agustin Campos MD [address] [place] [address] Consulting Physician Cardiology 02/17/21
--- OUTSIDE RECORDS SUMMARY | 2024-10-11 06:00 | XMS_ITS | Clinical Summary ---
Author Organization [facility] Address [address] [place] [address] Care Team Providers Care Heel Attacher Wood Name Role Phone Bora Rodriguez MD Primary Care Provider Agustin Campos MD Unavailable [phone] Allergies Active Allergy Reactions Criticality Noted Date Comments Celecoxib Hives,Rash High 12/18/2010 Morphine Itching,Nausea And Vomiting Low 01/22/20 21 Medications aspirin 81 mg tablet 325 mg Active atorvastatin (LIPITOR) 40 mg tablet 01/06/2018 Active Ca-D3-mag fd-osfp-ewb-man g-bor 600 mg calcium- 800 unit-50 mg tablet Active ergocalciferol (VITAMIN D) 50,000 unit capsule TAKE ONE CAPSULE BY MOUTH 2 TIMES PER MONTH 4 12/08/2017 Active fenofibrate (TRICOR) 54 mg tablet Active omega 0-wnf-sdy-fish oil (FISH OIL) 100-160-1,000 mg capsule Active [...] 03/08/2018 Assessment & Plan (03/08/2018 11:26 AM SSIS ETL DEVELOPER): Hx of oc htn with ?hx of PDS. IOP acceptable today off drops. Has been acceptable for the past several visits. No changes on visual field today. Okay to monitor annually RTC x 1 year for annual exam + 24-2 VF + RNFL OCT. Sooner PRN Pigment dispersion syndrome of iris, bilateral 1 05/08/2017 Assessment & Plan (03/08/2018 11:28 AM SSIS ETL DEVELOPER): Same. Nuclear sclerotic cataract of both eyes 03/08/20 18 Assessment & Plan (03/08/2018 11:27 AM SSIS ETL DEVELOPER): Not vis sig. Monitor. Surgical History Surgery [...] on file Legal Sex Female 1:35 AM SSIS ETL DEVELOPER Gender Identity Not on file Sexual Orientation Not on file Obstetrics History Last Filed Vital Signs Vital Sign Reading Time Taken Comments Blood Pressure 120/66 03/10/2021 4:17 PM SSIS ETL DEVELOPER Pulse 92 03/10/2021 4:17 PM SSIS ETL DEVELOPER Temperature 37.1 C (98.7 F) 03/10/2021 12:30 PM SSIS ETL DEVELOPER Respiratory Rate 18 03/10/2021 4:17 PM SSIS ETL DEVELOPER Oxygen Saturation 96% 03/10/2021 4:17 PM SSIS ETL DEVELOPER Inhaled Oxygen Concentration - - Weight 68 [...] Ended) 2024 03/30/20, 02/13/2020 Insurance T MEDICARE [facility] HMO [facility] HMO AET MEDICARE Advance Directives For more information, please contact: [phone] * Full Code (Latest Code Status on File) Date Activated Date Inactivated Comments 03/10/2021 1:49 PM 03/10/2021 8:31 PM Care Teams Heel Attacher Wood Relationship Specialty Start Date End Date Bora Rodriguez MD [address] [place] [address] PCP - General Family Medicine 08/13/19 Agustin Campos MD [address] [place] [address] Consulting Physician Cardiology 02/17/21
--- OUTSIDE RECORDS SUMMARY | 2024-10-11 06:00 | XMS_ITS | Clinical Summary ---
Author Organization [facility] Address [address] [place] [address] Phone Care Team Providers Care Physician Coder Name Role Phone Bora Rodriguez MD Primary Care Provider [phone] Allergies Active Allergy Reactions Criticality Noted Date [...] Take 250 mg by mouth daily. Active ggekvhqnzdr-J0-i oswellia serr (OSTEO BI-FLEX, 5-LOXIN,) 1,500-400-100 mg-unit-mg Tablet Take by mouth. Active atorvastatin (LIPITOR) 40 mg tablet 01/02/2021 Active Ca-D3-mag ml-vmot-hwr-ish -bor 600 mg calcium- 20 mcg-50 mg [...] Abstract 08/01/2024 10:15 AM CDT Office Visit [facility] Oncology and [facility] [address] [place] [address] Norm Thomas MD Erythrocytosis (Primary Dx) 07/31/2024 Orders Only [facility] Oncology and [facility] [address] [place] [address] Norm Thomas MD 07/11/2024 External Device Data [...] on file Legal Sex Female 2:57 AM ENGINEERING 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 Gender Identity Not on file Sexual Orientation [...] Description 08/01/2025 10:00 AM CDT Office Visit [facility] Oncology and Hematology - [place] [address] [place] [address] [facility] [address] [place] [address] Norm Thomas MD [address] [facility] [address] [place] [address] Health Maintenance Due Date Last [...] Maintenance Insurance TNA PPO MCR Care Teams Physician Coder Relationship Specialty Start Date End Date Bora Rodriguez MD [address] [facility] [address] [facility] [address] [place] [address] PCP - General Family Practice 01/21/21
--- OUTSIDE RECORDS SUMMARY | 2024-10-11 06:00 | XMS_ITS | Clinical Summary ---
Author Organization [facility] Address [address] [place] [address] Care Team Providers Care Fire Investigator Name Role Phone Zenaida Talbert MD Primary Care Provider + Allergies Active Allergy Reactions Criticality Noted Date Comments Celecoxib Hives,Rash High 12/18/2010 Morphine Itching,Nausea and Vomiting Low 01/22/20 21 Medications aspirin 81 MG chewable tablet Chew 81 mg by mouth 2 (two) times daily. Active atorvastatin 40 MG tablet 1 Active vitamin D2, ergocalciferol, (DRISDOL) 77383 UNITS capsule Take 50,000 Units by mouth every 30 (thirty) days. Active Glucosamine 500 MG Cap Take 500 mg by mouth. Active Toston-3 Fatty Acids (RA FISH OIL) 1000 MG Cap Act roosevelt naproxen 500 MG tabletIndications: Chronic bilateral low back pain with bilateral sciatica Take 1 tablet (500 mg total) by mouth 2 (two) times daily with meals. 180 tablet 1 2 Active metoprolol succinate ER (TOPROL-XL) 25 MG 24 hr tabletIndications: Essential hypertension Take 1 tablet (25 mg total) by mouth daily. 90 tablet 1 5 025 Active niacin (NIASPAN) 500 MG CR capsuleIndications :Mixed hyperlipidemia Take 1 capsule (500 mg total) by mouth nightly at bedtime. 90 capsule 1 5 025 Active omeprazole (PRILOSEC) 40 MG capsuleIndications :Gastroesophageal reflux disease without esophagitis Take 1 capsule (40 mg total) by mouth daily. 90 capsule 3 5 026 Active tiZANidine (ZANAFLEX) 4 MG tabletIndications: Neck pain,Chronic bilateral low back pain with bilateral sciatica Take 1 tablet (4 mg total) by mouth every 6 (six) hours as needed. 180 tablet 3 5 Active triamterene-hydroC HLOROthiazide (DYAZIDE) 37.5-25 MG capsuleIndications :Essential hypertension Take 1 capsule by mouth daily. 90 capsule 1 5 025 Active gabapentin (NEURONTIN) 300 MG capsuleIndications :Neck pain,Chronic bilateral low back pain with bilateral sciatica Take 2 capsules (600 mg total) by mouth 3 (three) times daily. 540 capsule 3 5 026 Active Boswellia-Glucosam ine-Vit D (OSTEO WK-FMXA-WNJSRJ/5-L OXIN) Tab 025 Discontin ued(Thera py completed ) Calcium Carbonate-Vit D-Min (CALCIUM 600+D3 PLUS MINERALS) 600-800 MG-UNIT Tab 025 Discontin ued(Thera py completed ) cholestyramine 4 G packet Take 4 g by mouth daily. 025 Discontin ued(Thera py completed ) diphenoxylate-atro pine 2.5-0.025 MG tablet Take 1 tablet by mouth 4 (four) times daily as needed. 025 Discontin ued(Thera py completed ) isosorbide mononitrate ER 30 MG 24 hr tablet Take 30 mg by mouth daily. 1 025 Discontin ued(Thera py completed ) metoprolol succinate ER 25 MG 24 hr tablet Take 25 mg by mouth daily. 025 Discontin ued(Reord er) Ascorbic Acid (VITAMIN C) 100 MG tablet Take 100 mg by mouth daily. 025 Discontin ued(Thera py completed ) triamterene-hydroC HLOROthiazide 37.5-25 MG capsule Take 1 capsule by mouth daily. 025 Discontin ued(Reord er) gabapentin 300 MG capsuleIndications :Neck pain,Chronic bilateral low back pain with bilateral sciatica Take 1 in am & 1-2 PO HS 270 capsule 1 2 025 Discontin ued(Reord er) tiZANidine 4 MG tabletIndications: Neck pain,Chronic bilateral low back pain with bilateral sciatica Take 1 tablet (4 mg total) by mouth every 6 (six) hours as needed. 270 tablet 1 2 025 Discontin ued(Reord er) omeprazole 20 MG capsuleIndications :Gastroesophageal reflux disease without esophagitis Take 1 capsule (20 mg total) by mouth daily. 90 capsule 1 2 025 Discontin ued(Reord er) ID NOW COVID-19 Kit TEST DIRECTED TODAY 2 025 Discontin ued(Thera py completed ) niacin (NIASPAN) 500 MG CR capsule Take 1 capsule (500 mg total) by mouth nightly at bedtime. 025 Discontin ued(Reord er) gabapentin (NEURONTIN) 300 MG capsuleIndications :Neck pain,Chronic bilateral low back pain with bilateral sciatica Take 1 capsule (300 mg total) by mouth 3 (three) times daily. 270 capsule 3 5 025 Discontin ued(Reord er) Active Problems Problem Noted Date Diagnosed Date Essential hypertension 10/09/2024 Overview (10/09/2024): Takes metoprolol, triamterene-hydrochlorothiazide. Assessment & Plan (10/09/2024 11:54 AM CDT): Controlled. Continue metoprolol, triamterene-hydrochlorothiazide. Ordered CMP to ensure kidney function is normal. SVT (supraventricular tachycardia) ([facility]) Overview (10/09/2024): Takes metoprolol to manage. Happens monthly but symptoms are brief. Overall managed with medication. Assessment & Plan (10/09/2024 11:54 AM CDT): Stable and managed with metoprolol. Continue. Fibromyalgia 10/09/2024 Overview (10/09/2024): Report that her pain persists. She does take gabapentin 300 mg 3 times daily but reports that her pain is inadequately controlled. Assessment & Plan (10/09/2024 11:54 AM CDT): Not controlled. Increase gabapentin to 600 mg 3 times daily. Neuropathy 10/09/2024 Overview (10/09/2024): Affects hands and feet. Affects all extremities. Takes gabapentin. Also is having CTS and cubital tunnel release next week. PUD (peptic ulcer disease) 10/09/2024 Overview (10/09/2024): Had ulcers a few years ago. Omeprazole increased to 40 mg to manage symptoms. Assessment & Plan (10/09/2024 11:54 AM CDT): Chronic and controlled with omeprazole. Continue. History of CVA (cerebrovascular accident) 2024 Overview (10/09/2024): No residual symptoms. Affected left side in 2005. Now just occasional left sided facial numbness. History of TIA (transient ischemic attack) 10/09 Overview (10/09/2024): 2017. Affected left side again. Prediabetes 10/09/2024 Mixed hyperlipidemia 02/13/2021 Overview (10/09/2024): Takes atorvastatin. Elevated bilirubin 02/04/2021 Erythrocytosis 01/21/2021 Assessment & Plan (10/09/2024 11:55 AM CDT): Will confirm whether this is resolved by checking CBC. Encounters Date Type Department Care Team Description 10/09/2024 11:10 AM CDT Office Visit [facility] Family Medicine - [place] [address] [place] [address] Zenaida Talbert MD New Patient (Here to get established with you. She is too early for her yearly annual per patient. ) 10/09/2024 Travel from Last 3 Months Immunizations Immunization Administration Dates Next Due Influenza Adult (Generic) 02/11/2022,03/30/2021, 02/13/2020 Family History Medical History Relation Comments Diabetes Brother 1 Heart Attack Brother 1 Diabetes Brother 2 Heart Disease Brother 2 Kidney Cancer Brother 2 Diabetes Father Heart Disease Father Hypertension Father Cancer Mother Diabetes Mother Heart Disease Mother Hypertension Mother Hypertension Sister 1 Thyroid Disease Sister 1 Hypertension Sister 2 No Known Problems Sister 3 No Known Problems Sister 4 No Known Problems Sister 5 Relation Status Comments Brother 1 Alive Brother 2 Father Mother Sister 1 Alive Sister 2 Alive Sister 3 Alive Sister 4 Alive Sister 5 Alive Social History Tobacco Use Types Packs/Day Years Used Date Smoking Tobacco: Former Cigarettes 0.5 45 1 964 - 2009 Smokeless Tobacco: Never Tobacco Cessation:Counseling Given: No Alcohol Use Standard Drinks/Week Comments Yes 0 (1 standard drink = 0.6 oz pur e alcohol) SOCIALLY PHQ-2 Answer Date Recorded Patient Health Questionnaire-2 Score 0 10/09/2024 Comments No Sex and Gender Information Value Date Recorded Sex Assigned at Not on file Legal Sex Female 3:02 PM BED CONTROL SPECIALIST Gender Identity Not on file Sexual Orientation Not on file Occupation Industry Job Start Date Job End Date RETIRED1 Not on file Not on file Not on file Last Filed Vital Signs Vital Sign Reading Time Taken Comments Blood Pressure 134/83 10/09/2024 11:17 AM CDT Pulse 76 10/09/2024 11:02 AM CDT Temperature 36.4 C (97.6 F) 10/09/2024 11:02 AM CDT Respiratory Rate 16 08/11/2021 8:43 AM CDT Oxygen Saturation 97% 10/09/2024 11:02 AM CDT Inhaled Oxygen Concentration - - Weight 77.4 kg (170 lb 9.6 oz) 10/09/2024 11:02 AM CDT Height 152.4 cm (5') 10/09/2024 11:02 AM CDT Body Mass Index 33.32 10/09/2024 11:02 AM CDT Plan of Treatment Upcoming Encounters Date Type Department Care Team (Late st Contact Info) Description 04/11/2025 10:30 AM BED CONTROL SPECIALIST Office Visit [facility] Family Medicine - [place] [address] [address] Zenaida Talbert MD [address] [place] [address] [id number] Health Maintenance Due Date Last Done Comments Colorectal Cancer Screening Colonoscopy (10 Years) 1956 Hepatitis C 1974 DTaP, Tdap and Td Vaccines (1 - Tdap) 10/19/1975 Pneumococcal Vaccine: 50+ Years (1 of 1 - PCV) 2006 Zoster Vaccines (1 of 2) 2006 Mammogram Screening 01/09/2016 01/08/2014 Annual Medicare Wellness Visit 2021 Dexa Scan (General) 2021 COVID-19 Vaccine ( season) 2023 02/11/2022, 03/05/2021, 08/03/2020, Additional history exists RSV Immunization or 60+ Years (1 - 1-dose 75+ series) 10/19/2031 PHQ-2 (Physician Terril) Completed 10/09/2024 Meningococcal B Vaccine Aged Out No l onger eligible based on patient's age to complete this topic Meningococcal Vaccine Aged Out No rosemary ashli eligible based on patient's age to complete this topic RSV Immunizations Under 20 Months Aged Out No longer eligible based on patient's age to complete this topic Insurance AETNA Care Teams Fire Investigator Relationship Specialty Start Date End Date Zenaida Talbert MD [address] [place] [id number] PCP - General FAMILY PRACTICE 10/09/24
--- OUTSIDE RECORDS SUMMARY | 2024-10-11 06:00 | XMS_ITS | Encounter Summary ---
Author Organization [facility] Address 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 Gender Identity Not on file Sexual Orientation Not on file documented as of this encounter Plan of Treatment Upcoming Encounters Date Type Department Care Team (Late st Contact Info) Description 08/01/2025 10:00 AM CDT Office Visit [facility] Oncology and Hematology - [place] [address] [place] [address] [address] [place] [address] [place] [address] [place] [address] [address] [place] [address] documented as of this encounter Visit Diagnoses Diagnosis Diffuse cystic mastopathy- Primary documented in this encounter Care Teams Computer Programming Manager Relationship Specialty Start Date End Date Bora Rodriguez MD [address] [facility] [address] [place] [address] PCP - General Family Practice 01/21/21 documented as of this encounter
[2024-10-11 06:25] VITALS: BP 138/80; PULSE 84; RESP 18; TEMP 36.2; O2SAT 97
[2024-10-11] MEDS: LACTATED RINGERS 1,000 ML 30 ML IV CONT (06:30)
--- NOTE | 2024-10-11 06:37 | PM.HPGS ---
History of Present Illness History of Present Illness Chief complaint: LT Carpal and Cubital Tunnel Syndrome Narrative: Patient seen and examined in pre-operative holding area. No interval change in medical history or symptoms. Patient recalls previous discussion of benefits and alternatives to procedure. Continues to desire to proceed with left endoscopic possible open carpal tunnel release and left cubital tunnel release and right basal joint and right carpal tunnel steroid injection. Reviewed procedure, post-op expectations and risks including but not limited to bleeding, infection, injury to tendon/nerve/vessel, decreased hand function, stiffness, RSD, no change or worsening of symptoms. I discussed the possible use of assistants and their participation in the case. Patient stated understanding and signed the consent form wishing to proceed. Review of Systems Review of Systems: All systems reviewed & are unremarkable except as noted in HPI and below PMFSH Past Medical History Medical History Osteoarthritis Epigastric pain Nausea Obesity Atypical chest pain DDD (degenerative disc disease) Fibromyalgia History of TIA (transient ischemic attack) Surgical History Surgical History History of cholecystectomy History of lumpectomy twice, right side, benign History of carpal tunnel surgery right History of umbilical hernia repair Family History Family History Father Diabetes mellitus Sibling Diabetes mellitus Heart disease Father Cerebrovascular accident Family history of diabetes mellitus in first degree relative Hypertension Family history of coronary artery disease Sibling Family history of diabetes mellitus in first degree relative Acute myocardial infarction Mother Family history of malignant neoplasm of cervix Family history of heart disease in male family member before age 55 Other Family history of elevated blood lipids Family history of hypercholesterolemia Social History Social History Social History: Smoking packs per day: 0.5 Smoking cigarettes per day: 10.0 Years smoked: 20 Smoking pack-years: 10.00 Smoking status: Former smoker Tobacco type: cigarettes Second hand tobacco smoke exposure: No Smoking end date: 05/27/08 Alcohol intake: never Alcohol use details: very rarely Substance use: never Substance use type: does not use Living arrangements: with family Occupation/Education: retired Gender identity (if verbalized by the patient): Female Sexual Orientation (if Verbalized by the Patient): Straight or Heterosexual Spiritual care concerns: No Meds Home Medications and Allergies Home Medications ?Medication ?Instructions ?Recorded ?Confirmed ?Type L.acidophilus,gasseri,rhamnosus-B.bifidum,long 1 cap PO 3XW 06/06/19 10/11/24 History 3 billion cell capsule (Digestive Probiotic) geqmahx-vrgjryoem-vjfi tablet 1 tablet PO DAILY 06/06/19 10/11/24 History crisaborole 2 % topical ointment 1 applic topical BID PRN rosacea 06/06/19 10/11/24 History (Eucrisa) ergocalciferol (vitamin D2) 1,250 50,000 unit PO USEASDIRECTD 06/06/19 09/26/24 History mcg (50,000 unit) capsule ivermectin 1 % topical cream 1 applic topical DAILY PRN Itching 06/06/19 09/26/24 History (Soolantra) niacin 250 mg tablet 500 mg PO DAILY 06/06/19 10/11/24 History omega-3 fatty acids 1,000 mg 2,000 mg PO DAILY 06/06/19 10/11/24 History capsule (Fish Oil Concentrate) aspirin 81 mg tablet 162 mg PO DAILY 08/06/20 10/11/24 History glucosamine sulf dipot 1 cap PO DAILY 08/06/20 10/11/24 History chlr,msm,chond 550 mg-C 30 mg-ish 1 mg capsule (Glucosamine Chondroitin) psyllium seed (with dextrose) oral 3.4 g PO DAILY 08/06/20 09/26/24 History powder (fiber) gabapentin 300 mg capsule See Rx Instructions .Route 01/05/24 10/11/24 Rx .COMPLEX #270 caps atorvastatin 40 mg tablet See Rx Instructions .Route 01/27/24 10/11/24 Rx .COMPLEX #90 tabs triamterene 37.5 1 cap PO DAILY #90 caps 04/12/24 10/11/24 Rx mg-hydrochlorothiazide 25 mg capsule metoprolol succinate 25 mg 25 mg PO DAILY #90 tabs 05/28/24 10/11/24 Rx tablet,extended release 24 hr naproxen 500 mg tablet 500 mg PO BID PRN Pain #180 tabs 06/25/24 10/11/24 Rx omeprazole 40 mg capsule,delayed 40 mg PO DAILY 3 months #90 caps 08/08/24 10/11/24 Rx release tizanidine 4 mg tablet 4 mg PO BID PRN muscle spasticity 09/25/24 10/11/24 Rx #180 tabs famotidine 40 mg tablet 40 mg PO DAILY 09/26/24 10/11/24 History Allergies Allergy/AdvReac Type Severity Reaction Status Date / Time celecoxib Allergy Severe SWELLING Verified 10/11/24 06:56 OF THROAT AND EYES, HIVES morphine Allergy ITCHING, Verified 10/11/24 06:56 NAUSEA Exam Narrative: unchanged Assessment and Plan Assessment and plan (1) Osteoarthritis of first carpometacarpal joint of right hand: Qualifiers: Osteoarthritis type: primary Qualified Code(s): M18.11 - Unilateral primary osteoarthritis of first carpometacarpal joint, right hand Code(s): M18.11 - Unilateral primary osteoarthritis of first carpometacarpal joint, right hand Status: Acute Assessment and Plan: cont as above (2) Left carpal tunnel syndrome: Code(s): G56.02 - Carpal tunnel syndrome, left upper limb Status: Acute (3) Entrapment of left ulnar nerve at elbow: Code(s): G56.22 - Lesion of ulnar nerve, left upper limb Status: Acute
--- NOTE | 2024-10-11 06:38 | P.OP_ITS ---
Procedure Note - Detailed Date of Procedure 10/11/24 Pre-op Diagnosis LT Carpal and Cubital Tunnel Syndrome and right carpal tunnel syndrome and right basal joint arthritis Post-op Diagnosis Same Procedure Performed left ectr and CuTR and right carpal and basal joint steroid injection Surgeon Kevin Mike MD Computer Systems Consultant clementina solis pa-c Anesthesia MAC Description of Procedure INFORMED CONSENT: The patient was seen and examined and marked in the pre-op area.? The patient signed the consent form. PROCEDURE IN DETAIL:The patient taken back to OR on the stretcher in supine position. Time out performed with anesthesia, surgeon and staff agreeing on patient's name site and surgery to be performed SCDs were placed on the lower extremities and inflated. A tourniquet was placed on {left} upper extremity and antibiotics given IV After anesthesia administered sedation I injected {10}cc 1%lido with epi and 0.5% marcaine plain at the operative sites I injected 0.3cc 1%lidocaine plain and 0.7cc Betamethasone 6mg/ml injected into the right carpal tunnel under sterile conditions. I injected 0.3cc 1%lidocaine plain and 0.7cc Betamethasone 6mg/ml injected into the right first cmc joint under sterile conditions The?{left upper extremity}?was prepped and draped in sterile fashion the??{left upper extremity} was? exsanguinated with Esmarch bandage and tourniquet inflated to 250mmHg I made a transverse incision in the {left} volar distal wrist crease through skin and dermis with 15 blade scalpel.? Littler scissors spread down to antebrachial fascia. A small incision was made in antebrachial fascia allowing access to Carpal tunnel. I proceeded with sequential dilation staying in line with the ring finger and hugging the hook of the hamate.? I then used the synovial elevator to free any adhesions from the underside of the transverse carpal ligament. Next I was able to insert the Microaire endoscopic carpal tunnel device with direct visualization of the transverse fibers on the monitor and proceeded with complete segmental retrograde release of the ligament in its entirety.? I irrigated with normal saline and closed with 4-0 monocryl for dermis and subcuticular closure. I next proceeded with making a longitudinal incision between two heads for flexor carpi ulnaris at end of {left} cubital tunnel with 15 blade scalpel.? Littler scissors were used to spread down to FCU fascia.? An incision was made in FCU fascia and ulnar nerve identified exiting cubital tunnel.? I proceeded with complete retrograde release of the cubital tunnel including 7cm proximal for the intermuscular septum.? The nerve appeared healthy with visible vaso nervorum.? There was no subluxation on full elbow range of motion. ? I irrigated with normal saline and closure with 4-0 monocryl for dermis and subcuticular. The incisions were covered with Dermabond then 4x4s, leticia, and a posterior elbow and volar wrist splint for patient safety, security and comfort and secured with nimco bandages after the tourniquet was let down noting the hand was warm and well perfused.? Patient awaken from anesthesia and transferred to recovery in stable condition Complications - none EBL- 1cc Disposition - home in stable condition Clementina Solis PA-C was essential for positioning, retraction, closure and dressing placement [facility] Billing Surgery - Charge Forward: Surgery Billing ([id number] for clementina )
--- NOTE | 2024-10-11 07:18 | P.PNAN_ITS ---
Anes - Eval Pre Procedure Procedure: Operation Date: 10/11/24 07:30 Proposed Procedures p Left Endoscopic Carpal Tunnel Release, Possible Open Carpal Tunnel Release - Kevin Mike MD s Left Cubital Tunnel Release - Kevin Mike MD s Concurrent Right Carpal Tunnel and Basal Joint Steroid Injection - Kevin Mike MD Date/Time: 10/11/24 07:18 Surgeon: Cee Pre Op Diagnosis: LT Carpal and Cubital Tunnel Syndrome Patient Data Age: 68 Gender: F Height: 1.52 m Weight: 76.5 kg Last Vital Signs Temp 36.2 C L 10/11/24 06:25 Pulse 84 10/11/24 06:25 Resp 18 10/11/24 06:25 BP 138/80 10/11/24 06:25 Pulse Ox 97 10/11/24 06:25 O2 Del Method Room Air 10/11/24 06:25 Allergies Allergy/AdvReac Type Severity Reaction Status Date / Time celecoxib Allergy Severe SWELLING Verified 10/11/24 06:56 OF THROAT AND EYES, HIVES morphine Allergy ITCHING, Verified 10/11/24 06:56 NAUSEA Home Medications ?Medication ?Instructions ?Recorded ?Confirmed ?Type L.acidophilus,gasseri,rhamnosus-B.bifidum,long 1 cap PO 3XW 06/06/19 10/11/24 History 3 billion cell capsule (Digestive Probiotic) jvifkzq-gsfpnsduv-uosc tablet 1 tablet PO DAILY 06/06/19 10/11/24 History crisaborole 2 % topical ointment 1 applic topical BID PRN rosacea 06/06/19 10/11/24 History (Eucrisa) ergocalciferol (vitamin D2) 1,250 50,000 unit PO USEASDIRECTD 06/06/19 09/26/24 History mcg (50,000 unit) capsule ivermectin 1 % topical cream 1 applic topical DAILY PRN Itching 06/06/19 09/26/24 History (Soolantra) niacin 250 mg tablet 500 mg PO DAILY 06/06/19 10/11/24 History omega-3 fatty acids 1,000 mg 2,000 mg PO DAILY 06/06/19 10/11/24 History capsule (Fish Oil Concentrate) aspirin 81 mg tablet 162 mg PO DAILY 08/06/20 10/11/24 History glucosamine sulf dipot 1 cap PO DAILY 08/06/20 10/11/24 History chlr,msm,chond 550 mg-C 30 mg-ish 1 mg capsule (Glucosamine Chondroitin) psyllium seed (with dextrose) oral 3.4 g PO DAILY 08/06/20 09/26/24 History powder (fiber) gabapentin 300 mg capsule See Rx Instructions .Route 01/05/24 10/11/24 Rx .COMPLEX #270 caps atorvastatin 40 mg tablet See Rx Instructions .Route 01/27/24 10/11/24 Rx .COMPLEX #90 tabs triamterene 37.5 1 cap PO DAILY #90 caps 04/12/24 10/11/24 Rx mg-hydrochlorothiazide 25 mg capsule metoprolol succinate 25 mg 25 mg PO DAILY #90 tabs 05/28/24 10/11/24 Rx tablet,extended release 24 hr naproxen 500 mg tablet 500 mg PO BID PRN Pain #180 tabs 06/25/24 10/11/24 Rx omeprazole 40 mg capsule,delayed 40 mg PO DAILY 3 months #90 caps 08/08/24 10/11/24 Rx release tizanidine 4 mg tablet 4 mg PO BID PRN muscle spasticity 09/25/24 10/11/24 Rx #180 tabs famotidine 40 mg tablet 40 mg PO DAILY 09/26/24 10/11/24 History Patient hx anesthesia problems: none Family hx anesthesia problems: none Results Review: All pre-operative results and documents have been reviewed as part of the pre- operative evaluation. [facility] Past Medical History Medical History Osteoarthritis Epigastric pain Nausea Obesity Atypical chest pain DDD (degenerative disc disease) Fibromyalgia History of TIA (transient ischemic attack) Surgical History Surgical History History of cholecystectomy History of lumpectomy twice, right side, benign History of carpal tunnel surgery right History of umbilical hernia repair Family History Family History Father Diabetes mellitus Sibling Diabetes mellitus Heart disease Father Cerebrovascular accident Family history of diabetes mellitus in first degree relative Hypertension Family history of coronary artery disease Sibling Family history of diabetes mellitus in first degree relative Acute myocardial infarction Mother Family history of malignant neoplasm of cervix Family history of heart disease in male family member before age 55 Other Family history of elevated blood lipids Family history of hypercholesterolemia Social History Social History Social History: Smoking packs per day: 0.5 Smoking cigarettes per day: 10.0 Years smoked: 20 Smoking pack-years: 10.00 Smoking status: Former smoker Tobacco type: cigarettes Second hand tobacco smoke exposure: No Smoking end date: 05/27/08 Alcohol intake: never Alcohol use details: very rarely Substance use: never Substance use type: does not use Living arrangements: with family Occupation/Education: retired Gender identity (if verbalized by the patient): Female Sexual Orientation (if Verbalized by the Patient): Straight or Heterosexual Spiritual care concerns: No Comments ASA 2 Exam Day of Procedure 10/11/24 07:18 Heart: regular rate and rhythm Lungs: clear to auscultation Airway: Mallampati scale class II Neurological: alert and oriented
[2024-10-11] MEDS: ceFAZolin SODIUM 2 GM/20 ML SW SYRINGE IV PUSH (07:23)
[2024-10-11] MEDS: BUPivacaine HCL 0.5% 10 ML AMP 5 ML INFILTRATE (07:28)
[2024-10-11] MEDS: LIDO 1%/EPINEPHRINE 1:100,000 10 ML VIAL 5 ML INFILTRATE (07:28)
[2024-10-11] MEDS: LIDOCAINE 1% LOCAL INJ 10 ML VIAL INFILTRATE (07:29)
[2024-10-11] MEDS: BETAMETHASONE SOD PHOS/ACETATE 30 MG/5 ML VIAL 8.4 MG XX (07:29)
[2024-10-11 07:57] VITALS: BP 120/76; PULSE 92; RESP 18; O2SAT 96
--- NOTE | 2024-10-11 08:01 | WPDANESPN ---
Anes - Prog Note Post-Op Date/Time: 10/11/24 08:01 Vital Signs: Last Vital Signs Temp 97.2 F L 10/11/24 06:25 Pulse 84 10/11/24 06:25 Resp 18 10/11/24 06:25 BP 138/80 10/11/24 06:25 Pulse Ox 97 10/11/24 06:25 O2 Del Method Room Air 10/11/24 06:25 Pain Score (VAS): no Patient Feedback: Patient satisfied with anesthetic care.
[2024-10-11 08:20] VITALS: BP 122/81; PULSE 88; RESP 18; O2SAT 98
[2024-10-11] MEDS: oxyCODONE HCL (*CRX) 5 MG TAB IR PO (08:30)
[2024-10-11 08:40] VITALS: BP 126/90; PULSE 90; RESP 18; O2SAT 98
== END 2024-10-11 08:48 | disposition home or self-care (01) ==
PROVIDERS: PCP Family Medicine; Visit Provider Plastic Surgery
PROC: 01N54ZZ Release Median Nerve, Percutaneous Endoscopic Approach (ICD-10-PCS; CPT 29848; principal; 2024-10-11 07:30)
PROC: (CPT 64718; 2024-10-11 07:30)
PROC: (CPT 29848; 2024-10-11 07:30)
DX: G56.03 Carpal tunnel syndrome, bilateral upper limbs (principal); G56.22 Lesion of ulnar nerve, left upper limb; M18.11 Unilateral primary osteoarthritis of first carpometacarpal joint, right hand
CPT/HCPCS: 29848; 64718; 20526; 20600

== ENCOUNTER 2025-04-10 10:24 | Outpatient (CLI) | payer MEDICARE, SELFPAY ==
--- NOTE | ~2025-04-10 | MM_ITS ---
EXAMINATION: MM screening tresa BI w antoinette HISTORY: Screening TECHNIQUE: Craniocaudal and mediolateral oblique 3-D tomosynthesis images were obtained and synthetic 2-D images were generated. CAD analysis was submitted and interpreted. COMPARISON: Comparison to multiple prior studies sequentially, with oldest reviewed study dated 11/07/2019. BREAST PARENCHYMAL COMPOSITION: Dense: The breasts are heterogeneously dense, which may obscure small masses. FINDINGS: There is no evidence of suspicious mass, calcification, or architectural distortion to suggest malignancy in either breast. Scattered benign-appearing calcifications are present. IMPRESSION: 1. No mammographic evidence of malignancy. 2. Recommend routine screening mammography in one year. BI-RADS Category 2: Benign finding(s). Reviewed, dictated and finalized at location A. [facility]
== END 2025-04-10 10:25 | disposition home or self-care (01) ==
LOC: MICIMG 10:25
PROVIDERS: PCP Obstetrics & Gynecology Gynecology; Visit Provider Obstetrics & Gynecology Gynecology
DX: Z12.31 Encounter for screening mammogram for malignant neoplasm of breast (principal)
CPT/HCPCS: 77063; 77067